=== PATIENT | male | born 1955 | race Caucasian/White ===

== ENCOUNTER 2017-11-23 10:35 | Day surgery (SDC) | payer SELFPAY ==
[~2017-11-23 10:35] MED LIST: BENI20TA26 PO; BUPR150T3 PO; LORTA10 PO; NEXI40CA PO; PRIS50TA PO; ROSU5 PO; SYNT125T OR; ZOVI800T13 PO
[2017-11-23] MEDS ORDERED: ACYC800T PO (10:47)
[2017-11-23] MEDS ORDERED: LEVO.2 PO (10:47)
[2017-11-23 10:48] VITALS: BP 160/99; PULSE 103; RESP 20; O2SAT 97
[2017-11-23 11:30] VITALS: BP 152/84; PULSE 92; RESP 20; TEMP 98.5; O2SAT 98
--- NOTE | 2017-11-23 11:46 | RADRPT ---
EXAM DATE/TIME: 11/23/2017 12:28 [place] COMPARISON: No previous studies available for comparison. INDICATIONS : Patient with osteomylitis right knee. will be receiving IV therapy. MEDICAL HISTORY : 1.HTN 2. GERD 3. Depression 4. diverticulitis SURGICAL HISTORY : 1. surgery right knee ENCOUNTER: Initial ACUITY: 2 months PAIN SCORE: 1/10 LOCATION: Right knee FLUORO TIME: 0.8 minutes IMAGE SERIES: 1 ACCESS: Right basilic vein DEVICE(S): 1.) 4 [place] single lumen 42 cm Xcela Power PICC Patient was premedicated per protocol for underlying contrast media allergy. PROCEDURE : 1. Ultrasound guidance for venous catheterization. 2. Fluoroscopic guidance. 3. Ultrasound & fluoroscopic guided central venous Power PICC line placement. The risks, benefits and alternatives to the procedure were explained and verbal and written consent w as obtained. The site was prepped in sterile fashion. Full sterile technique was used, including ca p, mask, sterile gloves and gown and a large sterile sheet. Hand hygiene and 2% chlorhexidine prep w as utilized per protocol for cutaneous antisepsis with appropriate dry time for site. Sterile gel a nd sterile probe cover were utilized for ultrasound guidance. The skin and subcutaneous tissues wer e infiltrated with local anesthetic solution. Under direct ultrasound guidance, a suitable vein was accessed and a measuring guidewire was introduc ed and positioned in the central venous system. The ultrasound images depicting access guidance were saved and stored to PACS for permanent record. A Power Injectable PICC line was cut to prescribed length and introduced, positioned with tip at the cavoatrial junction level. The line was flushed and secured per protocol. CONCLUSION: 1. Uncomplicated central venous Power PICC line placement. 2. The PICC line can be used immediately. Dean Parker MD on November 23, 2017 at 11:43 Board Certified Radiologist. This report was verified electronically.
[2017-11-23] MEDS ORDERED: SODIUM CHLORIDE 0.9% FLUSH 10 ML FLUSH IVF PRN ×2 (12:45)
[2017-11-24] MEDS ORDERED: SODIUM CHLORIDE 0.9% FLUSH 10 ML FLUSH IVF SCH (09:00)
== END 2017-11-23 11:50 | disposition home or self-care (01) ==
LOC: HROP 10:35 → HRIP 10:36 → HROP 11:50
PROVIDERS: ATTEND Internal Medicine
DX: M86.9 Osteomyelitis, unspecified (principal); I10 Essential (primary) hypertension; K21.9 Gastro-esophageal reflux disease without esophagitis; K57.92 Diverticulitis of intestine, part unspecified, without perforation or abscess without bleeding
CPT/HCPCS: 36569; 76937; 77001; C1751; J1642

== ENCOUNTER → 2018-04-20 | Day surgery (SDC) | payer SELFPAY ==
[~2018-04-20] VITALS: Ht 170.2 cm; Wt 82.0 kg
[~2018-04-20] MED LIST changes: +*morphine SULFATE 8 MG/ML PERIprocedure ONLY ONE; +ACETAMINOPHEN 1000 MG/100 ML 100 ML IV ONE; +APREPITANT 40 MG CAP ONE; +APREPITANT 40 MG CAP PO ONE; -BENI20TA26 PO; +BUPR150CR PO; -BUPR150T3 PO; +CARV12.5 PO; +COMMODE 3-IN-11 MIS; +DAPT500P IV; +DESV5TAB PO; +DEXAMETHASONE SOD PHOS 4 MG/ML VIAL IV ONE; +DO NOT ADM ANY ANTICOAGULANT DRUGS PRN; +DRON2.5C PO; +FAMO20TA2 PO; +FAMOTIDINE 20 MG/2 ML VIAL ONE; +FURO20TA PO; +GENTAMICIN SULFATE 80 MG/2 ML VIAL ONE; +HYDROmorphone HCL PF 2 MG/ML VIAL ONE; +INVA1INJ IV; +LIDO1PAD52 TOPICAL; +LORA-474 PO; +LORA1TAB12 PO; -LORTA10 PO; +MICO2CRE34 TOPICAL; +MIDAZOLAM HCL 2 MG/2 ML VIAL ONE; +MULT1TAB46 PO; -NEXI40CA PO; +OXYC1TAB35 PO; +PERC10TA27 PO; +PERC7.5T13 PO; +PHENYLEPH/NS 1000 MCG/10 ML SYR IV ONE; -PRIS50TA PO; +PROPOFOL 200 MG/20 ML AMP IV ONE; -ROSU5 PO; +SACU1TAB PO; +SODIUM CHLORIDE 0.9% 20 ML VIAL IV ONE; -SYNT125T OR; +SYNT88TA PO; +VASOPRESSIN 20 UNITS/ML VIAL ONE; +VITA100T54 PO; +VORT1TAB3 PO; +XARE15TA PO; +XARE20TA PO; +ZOFR8TAB PO; -ZOVI800T13 PO; +ceFAZolin INJ 1,000 MG VIAL ONE; +ePHEDrine/NS 25 MG/5 ML SYRINGE IV ONE; +fentaNYL CITRATE 250 MCG/5 ML AMP ONE; +oxyCODONE/ACETAMINOPHEN 10 MG/325 MG TAB ONE; +oxyCODONE/ACETAMINOPHEN 10 MG/325 MG TAB PO PRN
--- NOTE | 2018-04-20 12:29 | MP ---
cc: Gt Kearns MD DATE OF OPERATION: 04/20/2018 DATE OF OPERATION: 04/20/2018. PREOPERATIVE DIAGNOSIS: Right knee septic arthritis, right knee infection. POSTOPERATIVE DIAGNOSIS: Right knee septic arthritis, right knee infection. PROCEDURE PERFORMED: Right knee arthrotomy, drainage, irrigation, and debridement. SURGEON: Loyda Kearns MD POST DOC FELLOWSHIP: Vonda Estrada PA-C. ANESTHESIA: General. COMPLICATIONS: None. SPECIMEN: Right knee synovial fluid sent for Gram stain, aerobic and anaerobic cultures and sensitivities. DRAINS: One. DESCRIPTION OF PROCEDURE: The patient was brought into the operating room and had satisfactory general anesthesia by Dr. Francois of the Department of Anesthesia. Right lower extremity was prepped and draped in the usual sterile manner. The extremity was exsanguinated by elevation and tourniquet inflated to 250 mmHg. The previous incision was used, an anterior paramedian incision. Arthrotomy was made. The patient was found to have approximately 60 mL of purulent look to the synovial fluid. Cultures were taken for Gram stain, culture and sensitivity, aerobic and anaerobic. The knee was drained. It was irrigated with 12,000 mL of sterile Ringer's lactated solution. The previous area along the medial femoral condyle showed what appear to be hyaline type of cartilage. There was no longer any exposed bone. The knee was closed over 1/8-inch Hemovac drain. The capsule was repaired using #1 PDS suture, the subcutaneous layer using 2-0 PDS suture. The skin was approximated with 2-0 nylon suture. Sterile dressings were applied. Tourniquet was deflated. The patient tolerated the procedure well and arrived in the recovery room in stable and satisfactory condition. Gt Kearns MD AWG/SB , 12:10 PM , 12:28 PM
[2018-04-20 13:58] VITALS: BP 137/87; PULSE 78; RESP 18; TEMP 97.4; O2SAT 94
== END | disposition home or self-care (01) ==
LOC: HSDC 08:32
PROVIDERS: ATTEND Orthopaedic Surgery Orthopaedic Surgery of the Spine
DX: M00.061 Staphylococcal arthritis, right knee (principal); B95.62 Methicillin resistant Staphylococcus aureus infection as the cause of diseases classified elsewhere; Z16.11 Resistance to penicillins; I50.9 Heart failure, unspecified; F41.8 Other specified anxiety disorders; F40.240 Claustrophobia; Z87.891 Personal history of nicotine dependence
CPT/HCPCS: 01400; 27310; 86403; 87070; 87147; 87186; 87205; J0131; J0690; J1100; J1170; J2250; J2270; J2370; J3010; J8501; 36569; 76937; J1580

== ENCOUNTER 2018-07-14 09:00 | Inpatient (IN) ==
--- NOTE | 2018-07-14 09:48 | ED ---
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 And he was treated with such as an outpatient. Back in March 2018 the patient again had another positive synovial test on the right knee septic arthritis with septicemia. Now the patient returns complaining of the same pain to his right knee as well as right shoulder pain and right buttock pain that started last night, described as throbbing, 8 out of 10, patient denies trauma. Only thing that the patient describes as a twisting effect to his right knee which cause increased swelling and pain however no actual fall nor hitting of his body or falling on the ground. This occurred while he was getting out of the shower. Per patient he has not been on any antibiotics after being on daptomycin for nearly 7 months. He has been off antibiotics for approximately 3 months now. Location: right and lower extremity (Right knee, right buttock/hip area, and right shoulder) Radiation: non-radiation Severity: moderate Severity scale (1-10): 8 Quality: other (Throbbing) Pain Consistency: constant Relieving factors: none Exacerbating factors: none Associated symptoms: denies other symptoms Treatments prior to arrival: none Related Data Home Medications Medication Instructions Recorded Confirmed acyclovir 800 mg PO DAILY 07/14/18 07/14/18 bupropion HCl 300 mg PO QAM 07/14/18 07/14/18 carvedilol 12.5 mg PO BID 07/14/18 07/14/18 dexlansoprazole [Dexilant] 60 mg PO DAILY 07/14/18 07/14/18 levothyroxine [Synthroid] 88 mcg PO DAILY 07/14/18 07/14/18 oxycodone-acetaminophen 10 - 325 mg PO Q6HR PRN 07/14/18 07/14/18 prednisone 5 mg PO DAILY 07/14/18 07/14/18 rivaroxaban [Xarelto] 20 mg PO DAILY 07/14/18 07/14/18 vortioxetine [Trintellix] 10 mg PO DAILY 07/14/18 07/14/18 Allergies Allergy/AdvReac Type Severity Reaction Status Date / Time penicillin G Allergy Severe Unverified 04/20/18 09:09 Sulfa (Sulfonamide Allergy Severe Unverified 04/20/18 09:09 Antibiotics) vancomycin Allergy Severe Rash Verified 04/20/18 09:09 IVP DYE Allergy Unknown Nausea/Vomi Uncoded 11/23/17 10:51 ting Review of Systems ROS: all other systems reviewed are negative PMFSH History History Provided By: Patient Medical History Medical History Heart failure (Acute) Knee injury (Acute) MRSA (methicillin resistant Staphylococcus aureus) (Acute) Surgical History Surgical History History of knee surgery (Acute) Family History Family History Other Patient denies significant medical history Social History Social History Substance History: No History of Abuse Second Hand Smoke Exposure: No Smoking Status: Former smoker Tobacco Type: Cigarettes How Often Do You Have a Drink Containing Alcohol: 2 to 3 times a week [facility] within the Last 8 Weeks: No Recent Out of Country Travel within the Last 8 Weeks: No Immunization History Tetanus Immunization: <5 Years Hx Influenza Vaccine This Season: No Exam Narrative Exam Narrative: GENERAL: Well-nourished, well-developed patient in no apparent distress. SKIN: Warm and dry. HEAD: Atraumatic. Normocephalic. EYES: Pupils equal and round. No scleral icterus. No injection or drainage. ENT: No nasal bleeding or discharge. Mucous membranes pink and moist. NECK: Trachea midline. No JVD. CARDIOVASCULAR: Regular rate and rhythm. no rubs or gallops RESPIRATORY: No accessory muscle use. Clear to auscultation. Breath sounds equal bilaterally. GASTROINTESTINAL: Abdomen soft, non-tender, nondistended. No rebound or guarding MUSCULOSKELETAL: Extremities without clubbing, cyanosis, or edema. No obvious deformities. NEUROLOGICAL: Awake and alert. No obvious cranial nerve deficits. Motor grossly within normal limits. Five out of 5 muscle strength in the arms and legs. Normal speech. PSYCHIATRIC: Appropriate mood and affect; insight and judgment normal. Course Initial Documented Vital Signs Temperature 98.9 F 07/14/18 09:09 Pulse Rate 97 H 07/14/18 09:09 Respiratory Rate 15 07/14/18 09:09 Blood Pressure 146/105 H 07/14/18 09:09 Pulse Oximetry 97 07/14/18 09:09 Last Documented Vital Signs Temperature 98.9 F 07/14/18 09:09 Pulse Rate 97 H 07/14/18 09:09 Respiratory Rate 15 07/14/18 09:09 Blood Pressure 146/105 H 07/14/18 09:09 Pulse Oximetry 98 07/14/18 10:10 Medical Decision Making MDM Narrative Medical decision making narrative: Immediately upon arrival the patient was begun on the sepsis protocol, contacted pharmacy to obtain a single dose first dose of Cubicin 500 mg IV 1, his previous creatinine/kidney functions were noted from January of this year, and again the patient himself states that he has normal kidney functions. Medical Screen Exam Complete: Yes Emergency Medical Condition: Yes Differential Diagnosis Differential Diagnosis: Migrating joint site infection versus septicemia versus STEMI versus non-STEMI Lab Data Result diagrams: 07/14/18 09:50 07/14/18 09:50 Lab Results 07/14/18 07/14/18 07/14/18 Range/Units 09:50 09:50 09:50 WBC 7.7 (4.0-11.0) th/mm3 RBC 4.13 L (4.50-5.90) mil/mm3 Hgb 14.6 (13.0-17.0) gm/dL Hct 42.5 (39.0-51.0) % MCV 102.8 H (80.0-100.0) fL MCH 35.4 H (27.0-34.0) pg MCHC 34.4 (32.0-36.0) % RDW 15.6 (11.6-17.2) % Plt Count 213 (150-450) th/mm3 MPV 8.2 (7.0-11.0) fL Neut % (Auto) 66.8 (16.0-70.0) % Lymph % (Auto) 18.7 (9.0-44.0) % Young % (Auto) 13.8 H (0.0-8.0) % Eos % (Auto) 0.3 (0.0-4.0) % Baso % (Auto) 0.4 (0.0-2.0) % Neut # (Auto) 5.1 (1.8-7.7) th/mm3 Lymph # (Auto) 1.4 (1.0-4.8) th/mm3 Young # (Auto) 1.1 H (0.0-0.9) th/mm3 Eos # (Auto) 0.0 (0.0-0.4) th/mm3 Baso # (Auto) 0.0 (0.0-0.2) th/mm3 WBC Differential . Differential Comment Auto diff final ESR (0-20) mm/hr Sodium 135 L (136-145) meq/L Potassium 4.0 (3.5-5.1) meq/L Chloride 101 (98-107) meq/L Carbon Dioxide 27.4 (21.0-32.0) meq/L Anion Gap 7 (5-15) meq/L BUN 12 (7-18) mg/dL Creatinine 0.81 (0.60-1.30) mg/dL Estimated GFR Greater than 89 (>89) mL/min Random Glucose 81 (74-106) mg/dL Lactic Acid 0.7 (0.4-2.0) mmol/L Calcium 8.8 (8.5-10.1) mg/dL Total Bilirubin 0.4 (0.2-1.0) mg/dL AST 17 (15-37) U/L ALT 38 (12-78) U/L Alkaline Phosphatase 45 (45-117) U/L Total Creatine Kinase (39-308) U/L Troponin I (0.02-0.05) ng/mL C-Reactive Protein (0.00-0.30) mg/dL B-Natriuretic Peptide (0-100) pg/mL Total Protein 7.1 (6.4-8.2) g/dL Albumin 2.5 L (3.4-5.0) g/dL 07/14/18 07/14/18 07/14/18 Range/Units 09:50 09:50 09:50 WBC (4.0-11.0) th/mm3 RBC (4.50-5.90) mil/mm3 Hgb (13.0-17.0) gm/dL Hct (39.0-51.0) % MCV (80.0-100.0) fL MCH (27.0-34.0) pg MCHC (32.0-36.0) % RDW (11.6-17.2) % Plt Count (150-450) th/mm3 MPV (7.0-11.0) fL Neut % (Auto) (16.0-70.0) % Lymph % (Auto) (9.0-44.0) % Young % (Auto) (0.0-8.0) % Eos % (Auto) (0.0-4.0) % Baso % (Auto) (0.0-2.0) % Neut # (Auto) (1.8-7.7) th/mm3 Lymph # (Auto) (1.0-4.8) th/mm3 Young # (Auto) (0.0-0.9) th/mm3 Eos # (Auto) (0.0-0.4) th/mm3 Baso # (Auto) (0.0-0.2) th/mm3 WBC Differential Differential Comment ESR (0-20) mm/hr Sodium (136-145) meq/L Potassium (3.5-5.1) meq/L Chloride (98-107) meq/L Carbon Dioxide (21.0-32.0) meq/L Anion Gap (5-15) meq/L BUN (7-18) mg/dL Creatinine (0.60-1.30) mg/dL Estimated GFR (>89) mL/min Random Glucose (74-106) mg/dL Lactic Acid (0.4-2.0) mmol/L Calcium (8.5-10.1) mg/dL Total Bilirubin (0.2-1.0) mg/dL AST (15-37) U/L ALT (12-78) U/L Alkaline Phosphatase (45-117) U/L Total Creatine Kinase 49 (39-308) U/L Troponin I Less than 0.02 L (0.02-0.05) ng/mL C-Reactive Protein 22.00 H (0.00-0.30) mg/dL B-Natriuretic Peptide 45 (0-100) pg/mL Total Protein (6.4-8.2) g/dL Albumin (3.4-5.0) g/dL 08/17/18 Range/Units 14:07 WBC (4.0-11.0) th/mm3 RBC (4.50-5.90) mil/mm3 Hgb (13.0-17.0) gm/dL Hct (39.0-51.0) % MCV (80.0-100.0) fL MCH (27.0-34.0) pg MCHC (32.0-36.0) % RDW (11.6-17.2) % Plt Count (150-450) th/mm3 MPV (7.0-11.0) fL Neut % (Auto) (16.0-70.0) % Lymph % (Auto) (9.0-44.0) % Young % (Auto) (0.0-8.0) % Eos % (Auto) (0.0-4.0) % Baso % (Auto) (0.0-2.0) % Neut # (Auto) (1.8-7.7) th/mm3 Lymph # (Auto) (1.0-4.8) th/mm3 Young # (Auto) (0.0-0.9) th/mm3 Eos # (Auto) (0.0-0.4) th/mm3 Baso # (Auto) (0.0-0.2) th/mm3 WBC Differential Differential Comment ESR 62 H (0-20) mm/hr Sodium (136-145) meq/L Potassium (3.5-5.1) meq/L Chloride (98-107) meq/L Carbon Dioxide (21.0-32.0) meq/L Anion Gap (5-15) meq/L BUN (7-18) mg/dL Creatinine (0.60-1.30) mg/dL Estimated GFR (>89) mL/min Random Glucose (74-106) mg/dL Lactic Acid (0.4-2.0) mmol/L Calcium (8.5-10.1) mg/dL Total Bilirubin (0.2-1.0) mg/dL AST (15-37) U/L ALT (12-78) U/L Alkaline Phosphatase (45-117) U/L Total Creatine Kinase (39-308) U/L Troponin I (0.02-0.05) ng/mL C-Reactive Protein (0.00-0.30) mg/dL B-Natriuretic Peptide (0-100) pg/mL Total Protein (6.4-8.2) g/dL Albumin (3.4-5.0) g/dL Imaging Data Radiologist's impression: Knee X-Ray 07/14/18 00:00 CONCLUSION: Fairly large osteochondral injury in the medial femoral condyle with large joint effusion. Mild to moderate osteoarthritis of patellofemoral joint. Reactive sclerosis and osteophyte formation in the medial tibial plateau. Chest X-Ray 07/14/18 09:42 CONCLUSION: Cardiomegaly with mild basilar atelectasis. Venous Doppler Study 07/14/18 09:54 CONCLUSION: 1. No DVT identified. 2. Complex subcutaneous, serpiginous fluid collection in the medial right calf differential considerations are given above. Discharge Plan Discharge Disposition Patient Disposition: 01 Discharge Home Discharge Condition Condition: Stable Discharge Order Discharge Orders: Discharge Order (Routine); Ordered 07/14/18 Ordered By: Zaid Marinelli Discharge Details Anticipated Discharge Date: 07/14/18 Diagnosis: Hemarthrosis Physicians Team ED Provider: Zaid Marinelli Primary Care Provider: Primary Care Yelena Giron Attending Provider: Josias Yip Other Providers: Anmol Robledo Status ED Status: Admitted Observation Patient
[2018-07-14] MEDS ORDERED: Morphine Inj 4 MG/ML Vial IV.PUSH ONE (10:00)
[2018-07-14] MEDS ORDERED: Ketorolac Inj 30 MG/ML (IVP) Vial IV.PUSH ONE (10:00)
--- NOTE | 2018-07-14 10:12 | XR ---
EXAM DATE: 07/14/2018 10:00 AM EDT AGE/SEX: 62 years / Male INDICATIONS: Shortness of breath. CLINICAL DATA: This is the patient's initial encounter. Patient reports that signs and symptoms have been present for 1 day and indicates a pain score of 0/10. MEDICAL/SURGICAL HISTORY: Hypertension. Gastroesophageal reflux disease. None. COMPARISON: No prior exams available for comparison. FINDINGS: Cardiomegaly. Mild basilar airspace disease. Elevated right hemidiaphragm. No significant effusion. N o pneumothorax. CONCLUSION: Cardiomegaly with mild basilar atelectasis. Electronically signed by: Nicolas Jay MD 07/14/2018 10:10 AM EDT
[2018-07-14 10:14] LABS: Baso % (Auto) 0.4 % (0.0-2.0); Eos % (Auto) 0.3 % (0.0-4.0); Hematocrit 42.5 % (39.0-51.0); Hemoglobin 14.6 gm/dL (13.0-17.0); Lymph # (Auto) 1.4 th/mm3 (1.0-4.8); Lymph % (Auto) 18.7 % (9.0-44.0); Mean Corpuscular HGB Conc 34.4 % (32.0-36.0); Mean Corpuscular Hemoglobin 35.4 pg (27.0-34.0); Mean Corpuscular Volume 102.8 fL (80.0-100.0); Mean Platelet Volume 8.2 fL (7.0-11.0); Mono # (Auto) 1.1 th/mm3 (0.0-0.9); Mono % (Auto) 13.8 % (0.0-8.0); Neut # (Auto) 5.1 th/mm3 (1.8-7.7); Neut % (Auto) 66.8 % (16.0-70.0); Platelet Count 213 th/mm3 (150-450); Red Blood Count 4.13 mil/mm3 (4.50-5.90); Red Cell Distribution Width 15.6 % (11.6-17.2); White Blood Count 7.7 th/mm3 (4.0-11.0)
[2018-07-14 10:35] LABS: Alanine Aminotransferase 38 U/L (12-78); Albumin 2.5 g/dL (3.4-5.0); Anion Gap 7 meq/L (5-15); Aspartate Aminotransferase 17 U/L (15-37); Blood Urea Nitrogen 12 mg/dL (7-18); Calcium 8.8 mg/dL (8.5-10.1); Carbon Dioxide 27.4 meq/L (21.0-32.0); Chloride 101 meq/L (98-107); Glomerular Filtration Rate Greater Than 89 mL/min (>89); Glucose,Random 81 mg/dL (74-106); Sodium 135 meq/L (136-145)
[2018-07-14 10:38] LABS: Alkaline Phosphatase 45 U/L (45-117); Total Protein 7.1 g/dL (6.4-8.2)
[2018-07-14 10:51] LABS: Creatine Kinase 49 U/L (39-308)
[2018-07-14] MEDS ORDERED: DAPTOmycin Inj 500 MG in Sodium Chlor 0.9% Inj 100 ML IV.SIG ONE (11:00)
--- NOTE | 2018-07-14 11:10 | US ---
EXAM DATE: 07/14/2018 11:00 AM EDT AGE/SEX: 62 years / Male INDICATIONS: Right leg swelling. CLINICAL DATA: This is the patient's initial encounter. Patient reports that signs and symptoms have been present for 2 weeks and indicates a pain score of 3/10. MEDICAL/SURGICAL HISTORY: . Heart failure. Right knee injury. MRSA. . Right knee surgery. COMPARISON: No prior exams available for comparison. TECHNIQUE: Venous ultrasound of both lower extremities was performed from the inguinal ligament to t he proximal calf. Real-time, color Doppler and spectral tracing, compression and augmentation techni ques were used. FINDINGS: Normal compression of the deep venous system from the inguinal region to the proximal calf . No echogenic clot is seen. Normal response of the venous system to augmentation and respiration. The examination does demonstrate a complex subcutaneous fluid collection in the medial portion of the right calf measuring 11. 4 cm in length by 2.2 cm in thickness. Differential considerations would in clude subcutaneous hematoma, abscess, seroma or possibly a large thrombosed varicosity. The overall a ppearance is nonspecific by ultrasound. CONCLUSION: 1. No DVT identified. 2. Complex subcutaneous, serpiginous fluid collection in the medial right calf differential consider ations are given above. Electronically signed by: Pankaj Velasquez MD 07/14/2018 11:09 AM EDT
[2018-07-14] MEDS ORDERED: Sod Chloride 0.9% Inj 1,000 ML IV.CONT SCH (11:15)
--- NOTE | 2018-07-14 12:47 | P.HPIM ---
History of Present Illness Primary Care Physician: No Primary Care Physician Chief Complaint: right knee pain History of Present Illness: patient is a 62 y/o male with history of MRSA septic arthritis and cardiomyopathy who presented to ER with right knee pain. he says that he had right knee injury in 2016. he had knee surgery late 2016 after which he developed septic arthritis due to MRSA. he was admitted to the hospital and after a long hospitalization in December due to respiratory failure, pneumonia , [facility] and finally he went home.he says that while in the hospital he was started on IV Vanco but then he had a reaction and then he was switched to IV Daptomycin for about three months.he had I/D of the right knee in March/2018. he says that he's been fine since then but he last Tuesday when he was going to bathroom, he 'twisted his leg' after which his knee started to get swollen. he says that initially he thought it was because of the ' trauma' but later on he started to have chills and felling feverish along with some pain to the right shoulder and right buttock which made him concerned and he decided to come to ER. at the time of my evaluation he was in no acute distress but uncomfortable with the pain to the right knee. Review of Systems All other systems reviewed negative except as stated in HPI PMFSH - History History Provided By: Patient - Medical History Medical History: Medical History (Last Reviewed 07/14/18 @ 09:47 by Zaid Marinelli) Heart failure Knee injury MRSA (methicillin resistant Staphylococcus aureus) - Surgical History Surgical History: Surgical History (Last Reviewed 07/14/18 @ 09:47 by Zaid Marinelli) History of knee surgery - Family History Family History: Family History (Last Updated 07/14/18 @ 12:41 by Josias Yip MD) Other Patient denies significant medical history - Tobacco History Second Hand Smoke Exposure: No Tobacco Use In Past 30 Days: No Smoking Status: Former smoker Tobacco Type: Cigarettes - Alcohol History How Often Do You Have a Drink Containing Alcohol: 2 to 3 times a week - Substance Use History Substance History: No History of Abuse - Travel History Recent Travel in the [place] Within the Last 8 Weeks: No Recent Travel Out of the Country Within the Last 8 Weeks: No - Immunization History Tetanus Immunization: <5 Years Hx Influenza Vaccine This Season: No Medications and Allergies Active Medications: Active Medications Sodium Chloride (Ns Inj) 1,000 mls @ 100 mls/hr IV.CONT .Q10H CARLOS Stop: 07/14/18 21:14 Last Admin: 07/14/18 11:18 Dose: 100 mls/hr Allergies Allergy/AdvReac Type Severity Reaction Status Date / Time penicillin G Allergy Severe Unverified 04/20/18 09:09 Sulfa (Sulfonamide Allergy Severe Unverified 04/20/18 09:09 Antibiotics) vancomycin Allergy Severe Rash Verified 04/20/18 09:09 IVP DYE Allergy Unknown Nausea/Vomi Uncoded 11/23/17 10:51 ting Home Medications Medication Instructions Recorded Confirmed Type acyclovir 800 mg PO DAILY 07/14/18 07/14/18 History bupropion HCl 300 mg PO QAM 07/14/18 07/14/18 History carvedilol 12.5 mg PO BID 07/14/18 07/14/18 History dexlansoprazole [Dexilant] 60 mg PO DAILY 07/14/18 07/14/18 History levothyroxine [Synthroid] 88 mcg PO DAILY 07/14/18 07/14/18 History oxycodone-acetaminophen 10 - 325 mg PO Q6HR PRN 07/14/18 07/14/18 History prednisone 5 mg PO DAILY 07/14/18 07/14/18 History rivaroxaban [Xarelto] 20 mg PO DAILY 07/14/18 07/14/18 History vortioxetine [Trintellix] 10 mg PO DAILY 07/14/18 07/14/18 History Exam Vital signs: Vital Signs 07/14/18 09:09 07/14/18 10:10 Temperature 98.9 F Pulse Rate 97 H Respiratory Rate 15 Blood Pressure 146/105 H Pulse Oximetry 97 98 Intake & Output 07/13/18 07/14/18 07/14/18 18:59 06:59 18:59 Weight 90.718 kg - Constitutional no acute distress - Routine HEENT Exam Eye: Present: PERRL - Routine Neck Exam Present: supple, full ROM - Routine Respiratory Exam Present: CTA bilaterally - Routine Cardiovascular Exam Present: RRR - Routine Abdominal Exam Present: soft - Routine Extremities Exam Present: edema (right knee is swollen, warm and tender with decreased ROM.) - Routine Neurological Exam Present: alert, oriented X3 Results - Labs CBC & Chem 7: 07/14/18 09:50 07/14/18 09:50 Labs: Short CBC 07/14/18 Range/Units 09:50 WBC 7.7 (4.0-11.0) th/mm3 Hgb 14.6 (13.0-17.0) gm/dL Hct 42.5 (39.0-51.0) % Plt Count 213 (150-450) th/mm3 BMP 07/14/18 09:50 Sodium 135 L Potassium 4.0 Chloride 101 Carbon Dioxide 27.4 BUN 12 Creatinine 0.81 Calcium 8.8 Cardiac Enzymes 07/14/18 Range/Units 09:50 Total Creatine Kinase 49 (39-308) U/L Troponin I Less than 0.02 L (0.02-0.05) ng/mL Liver Function 07/14/18 Range/Units 09:50 Total Bilirubin 0.4 (0.2-1.0) mg/dL AST 17 (15-37) U/L ALT 38 (12-78) U/L Alkaline Phosphatase 45 (45-117) U/L Albumin 2.5 L (3.4-5.0) g/dL - Imaging Impressions Chest X-Ray 07/14/18 09:42 CONCLUSION: Cardiomegaly with mild basilar atelectasis. Venous Doppler Study 07/14/18 09:54 CONCLUSION: 1. No DVT identified. 2. Complex subcutaneous, serpiginous fluid collection in the medial right calf differential considerations are given above. Caprini VTE Risk Assessment Caprini VTE Risk Assessment: Moderate/High Risk (score >= 2) Caprini Risk Assessment Model: Point Value = 1 Point Value = 2 Point Value = 3 Point Value = 5 Age 41-60 Minor surgery BMI > 25 kg/m2 Swollen legs Varicose veins or History of unexplained or recurrent spontaneous Oral contraceptives or hormone replacement Sepsis (< 1 month) Serious lung disease, including pneumonia (< 1 month) Abnormal pulmonary function Acute myocardial infarction Congestive heart failure (< 1 month) History of inflammatory bowel disease Medical patient at bed rest Age 61-74 Arthroscopic surgery Major open surgery (> 45 min) Laparoscopic surgery (> 45 min) Malignancy Confined to bed (> 72 hours) Immobilizing plaster cast Central venous access Age >= 75 History of VTE Family history of VTE Factor V Leiden Prothrombin [id number] Lupus anticoagulant Anticardiolipin antibodies Elevated serum homocysteine Heparin-induced thrombocytopenia Other congenital or acquired thrombophilia Stroke (< 1 month) Elective arthroplasty Hip, pelvis, or leg fracture Acute spinal cord injury (< 1 month) Prophylaxis Regimen: Total Risk Factor Score Risk Level Prophylaxis Regimen 0-1 Low Early ambulation 2 Moderate Order ONE of the following: *Sequential Compression Device (SCD) *Heparin 5000 units SQ BID 3-4 Higher Order ONE of the following medications: *Heparin 5000 units SQ TID *Enoxaparin/Lovenox 40 mg SQ daily (WT < 150 kg, CrCl > 30 mL/min) *Enoxaparin/Lovenox 30 mg SQ daily (WT < 150 kg, CrCl > 10-29 mL/min) *Enoxaparin/Lovenox 30 mg SQ BID (WT < 150 kg, CrCl > 30 mL/min) AND/OR *Sequential Compression Device (SCD) 5 or more Highest Order ONE of the following medications: *Heparin 5000 units SQ TID (Preferred with Epidurals) *Enoxaparin/Lovenox 40 mg SQ daily (WT < 150 kg, CrCl > 30 mL/min) *Enoxaparin/Lovenox 30 mg SQ daily (WT < 150 kg, CrCl > 10-29 mL/min) *Enoxaparin/Lovenox 30 mg SQ BID (WT < 150 kg, CrCl > 30 mL/min) AND *Sequential Compression Device (SCD) Assessment and Plan - Plan A/P - right knee swelling/ pain- suspect septic arthritis ( patient with history of septic arthritis due to MRSA) will check XR of the right knee, ESR and CRP- will follow the blood cultures - consult ortho - will empirically start on IV antibiotics- will consider ID evaluation- continue with pain control. - cardiomyopathy; will verify the home meds and resume when med list is available. -DVT prophylaxis ; will resume Xarelto after ortho evaluation. Discussed Condition With: ER physician and the patient.
[2018-07-14] MEDS ORDERED: Acetaminophen 325 MG Tablet PO PRN (12:56)
--- NOTE | 2018-07-14 13:51 | XR ---
EXAM DATE: 07/14/2018 1:31 PM EDT AGE/SEX: 62 years / Male INDICATIONS: Right knee pain. CLINICAL DATA: This is the patient's initial encounter. Patient reports that signs and symptoms have been present for > 1 year and indicates a pain score of 8/10. MEDICAL/SURGICAL HISTORY: . hx of MRSA . 3 knee surgeries COMPARISON: No prior exams available for comparison. FINDINGS: There is moderate osteoarthritis predominantly at the medial knee joint with sclerosis and osteochond ral injury involving the medial femoral condyle. Large joint effusion. CONCLUSION: Fairly large osteochondral injury in the medial femoral condyle with large joint effusion. Mild to mo derate osteoarthritis of patellofemoral joint. Reactive sclerosis and osteophyte formation in the med ial tibial plateau. Electronically signed by: Nicolas Jay MD 07/14/2018 1:50 PM EDT
[2018-07-14] MEDS ORDERED: DAPTOmycin Inj 500 MG in Sodium Chlor 0.9% Inj 100 ML IV.SIG SCH (14:00)
--- NOTE | 2018-07-14 17:05 | MB ---
cc: Gt Kearns MD,Regis MCKEON DATE: 07/14/2018 REQUESTING PHYSICIAN: Dr. Yip. CHIEF COMPLAINT: Right knee pain. HISTORY OF PRESENT ILLNESS: This is a 62-year-old male presenting with the following history: Six days ago, he was at home getting out of his bathtub, he slipped, and twisted his right knee. He developed immediate pain in the knee with swelling. He had done fairly well with the knee. He is an internal medicine physician, and was able go back to work. He states that at 3:00 this morning, he woke up with increased swelling and pain involving the right knee, and also pain involving the right shoulder, and also the right sacroiliac joint region. Denies any numbness or tingling. Denies any history of fever or chills. He states he has not "felt sick." The patient does have a history of methicillin-resistant Staphylococcus aureus sepsis. This was in 12/2017. 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 He was treated medically with intravenous antibiotics. The patient also developed recurrent swelling to the knee with a knee effusion in 03/2108 that required an arthrotomy, and irrigation and debridement. The patient has been off of all antibiotics for at least 2 months, and has had a normal Westergren sedimentation rate and C-reactive protein. The patient does have right knee, medial compartment osteonecrosis with severe osteoarthritis. There has been no evidence of any osteomyelitis involving the right knee area. The patient is on Xarelto. He does have cardiomyopathy with intermittent history of atrial fibrillation. He states his ejection fraction is 20%. He is under management of Dr. Arzate of cardiology. Laboratory studies showed the patient to have elevated C-reactive protein equal to 22 and elevated Westergren sedimentation rate equal to 62. Albumin is equal to 2.5. The patient has normal renal function, normal electrolytes. CBC shows a normal white count of 7700. The patient has hyperchromic hyperesthetic indices, monocytes are high at 13.8 with normal at 8.0. The patient also has normal platelet count of 213,000. Under sterile conditions, the right knee was aspirated of 50 mL of bloody fluid. This compatible with a hemarthrosis. PAST MEDICAL HISTORY: See HPI. See records. SOCIAL HISTORY: The patient lives at home by himself. 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 FAMILY HISTORY: See records. REVIEW OF SYSTEMS: Noncontributory. PHYSICAL EXAMINATION: GENERAL: A 62-year-old male, who looks his stated age. The patient is in no acute distress. Alert and oriented to person, place and time. MUSCULOSKELETAL: Right knee has a moderate knee effusion. The patient has good range of motion about the right hip with no provocative symptoms. The patient has mild tenderness on the right sacroiliac joint. No swelling or tenderness noted. Right shoulder has mild restricted range of motion. No obvious shoulder effusion noted. No tenderness to the cervical, thoracic, or lumbar spine region. Good strength in the upper and lower extremities. IMPRESSION: 1. Right knee hemarthrosis. The patient is on Xarelto anticoagulation because of a history of atrial fibrillation. 2. History of right knee methicillin-resistant Staphylococcus aureus septic arthritis. 3. History of methicillin-resistant Staphylococcus aureus sepsis, 12/2017. RECOMMENDATIONS: I recommend the patient treated with intravenous antibiotics. Aerobic, anaerobic cultures and sensitivities were taken from the knee. Also, aerobic, anaerobic culture and sensitivity were taken from the blood earlier. Informed the patient will make further medical decision after the results of the blood cultures and cultures taken from the right knee aspiration. We will continue to follow the patient as an outpatient. In my opinion, the patient is medically stable to be discharged home. MD JERRY Yoder/rh , 04:26 PM , 04:41 PM
[2018-07-15] MEDS ORDERED: Levothyroxine 88 MCG Tablet PO SCH (06:00)
[2018-07-15] MEDS ORDERED: DAPTOmycin Inj 500 MG in Sodium Chlor 0.9% Inj 100 ML IV.SIG SCH ×2 (11:00→13:00)
== END 2018-07-14 18:55 | disposition left against medical advice (07) ==
LOC: NEDA 09:00 → NEPC 09:00 → OBSVTOIN 12:11 → NEDA 18:54
PROVIDERS: ADMIT Internal Medicine; ATTEND Internal Medicine
DX: M87.9 Osteonecrosis, unspecified; Z88.1 Allergy status to other antibiotic agents; Z88.2 Allergy status to sulfonamides; Z86.14 Personal history of Methicillin resistant Staphylococcus aureus infection; M17.11 Unilateral primary osteoarthritis, right knee; R79.82 Elevated C-reactive protein (CRP); M25.511 Pain in right shoulder; M25.061 Hemarthrosis, right knee; I50.9 Heart failure, unspecified; I48.91 Unspecified atrial fibrillation; I42.9 Cardiomyopathy, unspecified; Z91.041 Radiographic dye allergy status; Z79.01 Long term (current) use of anticoagulants; X50.1XXA Overexertion from prolonged static or awkward postures, initial encounter; Z87.891 Personal history of nicotine dependence

== ENCOUNTER 2018-08-16 13:56 | Inpatient (IN) ==
[2018-08-16] MEDS ORDERED: Dextrose 5%/Lactated Ringer's 1,000 ML IV.SIG SCH (15:45)
--- NOTE | 2018-08-16 15:54 | P.CONID ---
History of Present Illness Service: Infectious disease Consult date: 08/16/18 Requesting Physician: Gt Kearns Reason for Consult: Evaluate patient with septic right knee Primary Care Provider: No Primary Care Physician History of Present Illness: Patient seen and examined. Records reviewed. Patient is a 63-year-old male, presented to the hospital from Dr. Jennings's office for further evaluation and treatment of his right knee. Patient initially had surgery on his right knee after an injury back in summer 2016. He subsequently developed MRSA infection of his right knee and received IV antibiotic treatment at home. He was apparently initially on IV vancomycin, but he developed a rash and he completed treatment with IV Cubicin. In December 2017, he got admitted at [facility] and he was diagnosed to have MRSA sepsis, recurrent septic right knee, and a paraspinal abscess in T8. He was intubated at one point. He was also found to have cardiomyopathy with EF of less than 20%, moderate pulmonary hypertension, as well as left lower extremity DVT and bilateral pulmonary embolism. He was in the hospital from January 10 - January 28. He was discharged to [facility] where he stayed for about 5 days. During his hospitalization at [facility], he was also treated for E. coli ESBL positive pneumonia. When patient was discharged from [place], he was on IV Cubicin which reportedly he completed around March 01. There was some notes that he was supposed to be on doxycycline for about 6 weeks, but he could not remember ever taking doxycycline. In March 2018, April 20, he was here at [facility], and he had surgery on his right knee again for infection and it cultured out MRSA. It was sensitive to Cubicin, vancomycin, tetracycline, Bactrim, Zyvox, and rifampin. He received another course of IV Cubicin. Patient is a practicing internal medicine physician locally, and he has been managing his IV antibiotics at home. July 142017 he got admitted again this was after he twisted his knee and he developed swelling of the right knee. He was also having body pains, as well as fever and chills. The knee was aspirated, and it was bloody. According to the patient there was a culture done and it was negative. His CRP was 22 and sed rate 66 at that time. Patient stated that he received a dose of Cubicin prior to the arthrocentesis. He received 2 weeks of IV Cubicin at that time, and probably completed the treatment the first week of July. Patient has not been on any antibiotics since. Knee replacement was actually being discussed with him with plans to do it. However in the last several days he started having some mild leg, and not feeling well. He had noted increased swelling of his right knee with heat, as well as pain. He had some blood work done and his sed rate was 60, CRP 74, and he had a normal WBC. These were all done August 14. He went to see Dr. Jennings today and arthrocentesis was done in the office and they took out about 70 mL of purulent fluid. Patient was therefore brought into the hospital for further evaluation and treatment. He denies any respiratory complaint. Denies any urinary complaint. He has not had any recent skin infection. He has his normal 3-4 bowel movements per day and he attributes this to his irritable bowel syndrome. Infectious disease consultation has been requested to assist with his management. Review of Systems Constitutional: Reports body ache(s), Reports fatigue, Reports malaise, Denies chills, Denies fever(s), Denies night sweats Eyes: Denies discharge, Denies dry eyes Ears, Nose, Mouth, and Throat: Denies difficulty swallowing, Denies dry mouth, Denies ear pain, Denies facial pain, Denies nasal discharge, Denies sore throat Cardiovascular: Denies chest pain, Denies shortness of breath Respiratory: Denies chest congestion, Denies cough, Denies shortness of breath Gastrointestinal: Reports loose stools, Denies abdominal pain, Denies nausea, Denies pain with swallowing, Denies vomiting Genitourinary: Denies painful urination Musculoskeletal: Reports joint pain, Reports joint swelling, Reports limited joint movement, Denies back pain Skin/Breast: Denies rash, Denies sores Neurologic: Denies dizziness, Denies fainting PMFSH - History History Provided By: Patient - Medical History Medical History: Medical History (Last Updated 08/16/18 @ 15:47 by Suyapa Walters MD) Arthritis Cardiomyopathy Deep vein thrombosis (DVT) of left lower extremity Depression Fracture of thoracic spine GERD (gastroesophageal reflux disease) Hypothyroidism Low back pain Pulmonary embolism Pulmonary hypertension Sleep apnea Heart failure Knee injury MRSA (methicillin resistant Staphylococcus aureus) - Surgical History Surgical History: Surgical History (Last Reviewed 08/16/18 @ 14:49 by Suzy Mason RN) History of knee surgery - Family History Family History: Family History (Last Reviewed 08/16/18 @ 14:49 by Suzy Mason RN) Other Patient denies significant medical history - Tobacco History Second Hand Smoke Exposure: No Tobacco Use In Past 30 Days: No Smoking Status: Former smoker Tobacco Type: Cigarettes - Alcohol History How Often Do You Have a Drink Containing Alcohol: 4 or more times a week - Substance Use History Substance History: No History of Abuse - Travel History Recent Travel in the [place] Within the Last 8 Weeks: No Recent Travel Out of the Country Within the Last 8 Weeks: No - Immunization History Tetanus Immunization: >5 Years Tetanus Immunization Year if Known: 2009 Hx Influenza Vaccine This Season: No Medications and Allergies Allergies Allergy/AdvReac Type Severity Reaction Status Date / Time penicillin G Allergy Severe Rash Verified 08/16/18 15:14 Sulfa (Sulfonamide Allergy Severe Rash Verified 08/16/18 15:14 Antibiotics) vancomycin Allergy Severe Rash Verified 04/20/18 09:09 IVP DYE Allergy Unknown Nausea/Vomi Uncoded 11/23/17 10:51 ting Home Medications Medication Instructions Recorded Confirmed Type acyclovir 800 mg PO DAILY 07/14/18 08/16/18 History bupropion HCl 300 mg PO QAM 07/14/18 08/16/18 History carvedilol 12.5 mg PO DAILY 07/14/18 08/16/18 History dexlansoprazole [Dexilant] 60 mg PO DAILY 07/14/18 08/16/18 History levothyroxine [Synthroid] 88 mcg PO DAILY 07/14/18 08/16/18 History oxycodone-acetaminophen 10 - 325 mg PO Q6HR PRN 07/14/18 08/16/18 History prednisone 5 mg PO DAILY 07/14/18 08/16/18 History rivaroxaban [Xarelto] 20 mg PO DAILY 07/14/18 08/16/18 History vortioxetine [Trintellix] 10 mg PO DAILY 07/14/18 08/16/18 History sacubitril-valsartan [Entresto] 1 tab PO DAILY 08/16/18 08/16/18 History Exam Vital signs: Vital Signs 08/16/18 14:34 Temperature 97.7 F Pulse Rate 86 Respiratory Rate 20 Blood Pressure 128/79 Pulse Oximetry 96 Intake & Output 08/15/18 08/16/18 08/16/18 18:59 06:59 18:59 Weight 90 kg Other: Weight On Admission 90 kg Narrative: Physical Examination GENERAL: Patient is a well-nourished, well-developed patient, awake and alert , not in respiratory distress. SKIN: Cool and dry. No generalized rash, no ecchymoses and no evidence of embolic lesions. HEAD: Atraumatic. Normocephalic. No temporal wasting, or tenderness. EYES: [place] conjunctiva. No petechia or hemorrhage. Pupils equal, round and reactive to light. Extraocular movements full and intact. No scleral icterus. No injection or drainage. EARS, NOSE AND THROAT: Nose without bleeding or purulent nasal discharge. No sinus tenderness. Mucous membranes pink and moist. No oral lesions noted. No exudate. No oral thrush. NECK: Trachea midline. Supple and not tender, no meningeal signs CARDIOVASCULAR: Regular rate and rhythm. No murmurs, rubs or gallops heard RESPIRATORY: Clear to auscultation. Breath sounds equal bilaterally. No rales , wheezing or rhonchi ABDOMEN: Soft, non-tender, nondistended. Bowel sounds present and normoactive. No guarding. No rebound. No organomegaly. EXTREMITIES: No clubbing, cyanosis, or edema. R knee has joint effusion, swollen, (+) warmth, no erythema, able to flex to about 45 degrees. No calf tenderness. Well perfused and warm. NEUROLOGICAL: Awake and alert. Cranial nerves grossly intact. Motor grossly within normal limits. PSYCHIATRIC: Normal affect, calm and cooperative. LINE: No evidence of infection Results - Labs CBC & Chem 7: 08/16/18 15:00 08/16/18 21:00 Labs: Laboratory Results - last 24 hr 08/16/18 Unknown Synovial Crystals None Assessment and Plan - Plan Impression Septic R knee, recurrent problem, has had several surgeries and course of IV Abx Hx MRSA septic R knee, sepsis, and T8 paraspinal abscess Hx E coli ESBL PNA Sleep apnea Cardiomyopathy Allergy to PCN, tolerates cephalosporins Allergy to Vanco and Sulfa Hx PE and LLE DVT Recommendation 2 BC For MRI R knee To go to OR today Follow C/S and adjust Abx Will see what cultures show and decide on Abx ?Recurrent despite completing Rx with Cubicin, cause? IV He postop while waiting for C/S Explained plan to patient, Dr Hassan, that best to wait for C/S to decide on Rx when he gets D/C Monitor progress I will follow along with you Thank you for this consultation
[2018-08-16 16:01] LABS: Baso % (Auto) 0.4 % (0.0-2.0); Eos % (Auto) 0.1 % (0.0-4.0); Hematocrit 42.1 % (39.0-51.0); Hemoglobin 14.3 gm/dL (13.0-17.0); Lymph % (Auto) 11.2 % (9.0-44.0); Mean Corpuscular HGB Conc 34.1 % (32.0-36.0); Mean Corpuscular Hemoglobin 35.5 pg (27.0-34.0); Mean Corpuscular Volume 104.1 fL (80.0-100.0); Mean Platelet Volume 8.8 fL (7.0-11.0); Mono # (Auto) 0.6 th/mm3 (0.0-0.9); Mono % (Auto) 6.9 % (0.0-8.0); Neut # (Auto) 7.5 th/mm3 (1.8-7.7); Neut % (Auto) 81.4 % (16.0-70.0); Platelet Count 215 th/mm3 (150-450); Red Blood Count 4.04 mil/mm3 (4.50-5.90); Red Cell Distribution Width 16.6 % (11.6-17.2); White Blood Count 9.2 th/mm3 (4.0-11.0)
[2018-08-16 16:21] LABS: INR 0.9 Ratio
--- NOTE | 2018-08-16 17:33 | MR ---
EXAM DATE: 08/16/2018 5:20 PM EDT AGE/SEX: 63 years / Male INDICATIONS: Edema. CLINICAL DATA: This is the patient's initial encounter. Patient reports that signs and symptoms have been present for 1 week and indicates a pain score of 5/10. MEDICAL/SURGICAL HISTORY: Congestive heart failure. . Right knee surgery. COMPARISON: TLI, MR KNEE W/O CONTRAST, RIGHT, 08/29/2017. . TECHNIQUE: Multiplanar, multisequence MRI examination was performed with contrast and after the intr avenous administration of 9 ml Gadavist (gadobutrol) contrast as a single exam dose. FINDINGS: Cruciate Ligaments: ACL and PCL are intact. Menisci: The patient again has a very diminutive posterior horn and body of the medial meniscus whic h I believe is mostly postoperative. The lateral meniscus is relatively well-preserved. Collateral Ligaments: MCL and LCL complexes are intact. Marrow/Cartilage: There is some low-grade bony edema involving the medial joint space between the fe mur and the tibia, improved since August. There is a small area of osteonecrosis of the medial fem oral condyle. It is nearly bone on bone medially with marked joint space narrowing. There is marked narrowing of the patellar cartilage. There is a small subchondral cyst in the lateral tibial plateau which is new since August 2017. That measures 9 mm across Other: There is a moderate size joint effusion. There is diffuse enhancement of the synovium. There is extensive scarring and fullness in the infrapatellar fat pad. There is a small popliteal bursa charito wing diffuse enhancement. There is a small Brunner's cyst which does not show significant enhancement o f the capsule. Post Contrast: There is diffuse enhancement of synovium not unusual status post surgery. CONCLUSION: 1. There is marked chondral thinning involving the medial compartment with underlying areas of bony edema actually slightly improved since August 2017. There is a small new subchondral cyst in the lat eral tibial plateau along the central weightbearing portion measuring 9 mm across. Diminutive posteri or horn and body of the medial meniscus likely postoperative. Electronically signed by: Benjamin Correa MD 08/16/2018 5:32 PM EDT
[2018-08-16 17:40] LABS: Lymphocytes,Synovial Fluid 3 %; Neutrophils,Synovial Fluid 89 % (0-25)
[2018-08-16 17:58] LABS: Appearance,Synovial Fluid Marked (Clear); Color,Synovial Fluid Straw (Straw)
[2018-08-16] MEDS ORDERED: DAPTOmycin Inj 600 MG in Sodium Chlor 0.9% Inj 100 ML IV.SIG ONE (18:45)
[2018-08-16] MEDS ORDERED: fentaNYL Citrate Inj 100 MCG/2 ML Ampul ONE ×2 (19:08→19:57)
[2018-08-16] MEDS ORDERED: Bisacodyl 10 MG Supp RECTAL PRN (19:19)
[2018-08-16] MEDS ORDERED: Zolpidem Tartrate 5 MG Tablet PO PRN (19:19)
[2018-08-16] MEDS ORDERED: Post-op Orders (for Pharmacy) OTHER STA (19:19)
[2018-08-16] MEDS ORDERED: *Meperidine Inj 25 MG/ML Vial PERIprocedural Use ONLY ONE (19:50)
[2018-08-16] MEDS ORDERED: *morphine SULFATE 10 MG/ML PERIprocedure ONLY ONE (20:04)
[2018-08-16] MEDS: *morphine SULFATE 10 MG/ML PERIprocedure ONLY ONE ×4 (20:13→23:03)
[2018-08-16] MEDS ORDERED: Gadobutrol PF 10 MMOL/10 ML Vial (for RAD) IV.SIG ONE (20:16)
[2018-08-16] MEDS: HYDROmorphone PF Inj 2 MG/ML Vial ONE ×4 (20:33→23:04)
--- NOTE | 2018-08-16 21:35 | MP ---
cc: Gt Kearns MD,Suyapa Arzate,Bhupinder Frost,Saul DATE OF OPERATION: 08/16/2018 PREOPERATIVE DIAGNOSES: Right knee septic arthritis, synovitis. POSTOPERATIVE DIAGNOSES: Right knee septic arthritis, synovitis. PROCEDURE: Right knee arthrotomy, incision and drainage abscess, irrigation and debridement, complete synovectomy. SURGEON: Gt Kearns MD WREATH INSPECTOR: Vonda Estrada PA-C. TOURNIQUET TIME: 52 minutes at 250 mmHg. COMPLICATIONS: None. SPECIMEN: Entirely debrided soft tissue and synovium, 2 synovial cultures were taken for Gram stain, C and S, and aerobic, anaerobic culture and sensitivities and 1 synovial fluid was taken for Gram stain, C and S, aerobic, anaerobic C and S. Also, all culture sent for AP and fungal. PROCEDURE IN DETAIL: The patient was brought to the operating room and had satisfactory general anesthesia by Dr. Erick Dominguez, department of anesthesia. The right lower extremity was prepped and draped in the usual manner. The extremity was exsanguinated by elevation and tourniquet inflated to 250 mmHg. Anteromedial exposure of the knee was made. The patient was found to have what appeared to be probable septic arthritis, but this was drained. The patient was also found to have significant synovitis in almost pannus formation with synovitis coming over the femur and the proximal tibia. A complete synovectomy was performed sharply. The knee was then irrigated with 9000 mL of sterile saline antibiotic solution. The wound was closed over 2 Hemovac drains. The capsule and extensor mechanism were repaired with #2 Ti-Cron with #1 PDS suture. Subcutaneous closed with 2-0 PDS. Skin was approximated with interrupted 2-0 nylon. Sterile dressing applied. The patient tolerated the procedure well and was arrived to the recovery room in stable and satisfactory condition. Gt Kearns MD AWG/ct/do , 07:47 PM , 07:55 PM [facility]
[2018-08-16 22:11] LABS: Albumin 2.4 g/dL (3.4-5.0); Anion Gap 9 meq/L (5-15); Aspartate Aminotransferase 15 U/L (15-37); Blood Urea Nitrogen 15 mg/dL (7-18); Calcium 8.7 mg/dL (8.5-10.1); Chloride 104 meq/L (98-107); Glomerular Filtration Rate Greater Than 89 mL/min (>89); Glucose,Random 108 mg/dL (74-106); Potassium 4.3 meq/L (3.5-5.1); Sodium 139 meq/L (136-145)
[2018-08-16 22:12] LABS: Alanine Aminotransferase 19 U/L (12-78)
[2018-08-16 22:14] LABS: Alkaline Phosphatase 48 U/L (45-117); Total Protein 6.5 g/dL (6.4-8.2)
[2018-08-16] MEDS: oxyCODONE/Acetaminophen 10/325 Tablet PO PRN (22:52)
[2018-08-16] MEDS: Senna/Docusate Sodium 8.6/50 MG Tablet PO SCH (22:53)
[2018-08-16] MEDS: Morphine Inj 4 MG/ML Vial IV.PUSH PRN (23:54)
[2018-08-17] MEDS: Morphine Inj 4 MG/ML Vial IV.PUSH PRN ×4 (03:06→23:01)
[2018-08-17] MEDS: Levothyroxine 88 MCG Tablet PO SCH (05:10)
[2018-08-17] MEDS: oxyCODONE/Acetaminophen 10/325 Tablet PO PRN ×3 (05:10→17:13)
--- NOTE | 2018-08-17 06:37 | P.PNOP ---
Subjective Interval history: POD# 1 R Knee I&D C/O post op pain No chest pain;no SOB Explained operative findings,answered multiple questions Physical Exam Vital signs: Vital Signs 08/16/18 14:34 08/16/18 17:30 08/16/18 18:00 Temperature 97.7 F 98.2 F Pulse Rate 86 89 85 Respiratory Rate 20 15 24 Blood Pressure 128/79 131/80 142/87 H Pulse Oximetry 96 98 96 08/16/18 19:48 08/16/18 19:50 08/16/18 20:00 Temperature 98.1 F 97.7 F Pulse Rate 93 H 91 H 86 Respiratory Rate 24 20 17 Blood Pressure 203/93 H 196/117 H 175/93 H Pulse Oximetry 95 95 98 08/16/18 20:15 08/16/18 20:25 08/16/18 20:30 Temperature Pulse Rate 84 80 Respiratory Rate 16 16 16 Blood Pressure 159/90 H 150/86 H Pulse Oximetry 97 97 08/16/18 20:45 08/16/18 21:00 08/16/18 21:05 Temperature Pulse Rate 78 71 Respiratory Rate 16 18 16 Blood Pressure 145/86 H 147/91 H Pulse Oximetry 96 95 08/16/18 21:15 08/16/18 21:20 08/17/18 00:00 Temperature 97.9 F Pulse Rate 78 93 H Respiratory Rate 18 16 18 Blood Pressure 149/93 H 126/84 Pulse Oximetry 95 95 Intake & Output 08/16/18 08/16/18 08/17/18 06:59 18:59 06:59 Intake Total 0 / 0 900 / 900 Output Total 300 / 300 50 / 50 Balance -300 / -300 850 / 850 Weight 90 kg Intake: IV 200 / 200 Ofirmev Inj 1,000 mg In 100 ml 100 / 100 @ 0 mls/hr IV.SIG .STK-MED ONE Rx#:[id number] Cubicin Inj 600 MG In NS Inj 100 / 100 100 ML @ 200 mls/hr IV.SIG ONCE ONE Rx#:[id number] Oral 0 / 0 Anesthesia Amount 700 / 700 Output: Urine 300 / 300 Estimated Blood Loss 50 / 50 Other: Weight On Admission 90 kg Narrative: N/V intact Negative rossy's;no calf tenderness Dressings dry;minimal drainage in hemavac drain Results - Labs CBC & Chem 7: 08/16/18 15:00 08/16/18 21:00 Laboratory Results - last 24 hr 08/16/18 08/16/18 08/16/18 15:00 15:00 21:00 WBC 9.2 RBC 4.04 L Hgb 14.3 Hct 42.1 MCV 104.1 H MCH 35.5 H MCHC 34.1 RDW 16.6 Plt Count 215 MPV 8.8 Neut % (Auto) 81.4 H Lymph % (Auto) 11.2 [place] % (Auto) 6.9 Eos % (Auto) 0.1 Baso % (Auto) 0.4 Neut # (Auto) 7.5 Lymph # (Auto) 1.0 [place] # (Auto) 0.6 Eos # (Auto) 0.0 Baso # (Auto) 0.0 WBC Differential . Differential Comment Auto diff final PT 9.0 L INR 0.9 Sodium 139 Potassium 4.3 Chloride 104 Carbon Dioxide 26.0 Anion Gap 9 BUN 15 Creatinine 0.80 Estimated GFR Greater than 89 Random Glucose 108 H Calcium 8.7 Total Bilirubin 0.3 AST 15 ALT 19 Alkaline Phosphatase 48 Total Protein 6.5 Albumin 2.4 L Synovial Color Synovial Appearance Synovial RBC Synovial Nuc Cells Synovial Neutrophils Synovial Lymphocytes Synovial Monocytes Synovial Crystals Rheumatoid Factor Scrn Negative Rheumatoid Factor Titer Not Reportable 08/16/18 08/16/18 Unknown Unknown WBC RBC Hgb Hct MCV MCH MCHC RDW Plt Count MPV Neut % (Auto) Lymph % (Auto) [place] % (Auto) Eos % (Auto) Baso % (Auto) Neut # (Auto) Lymph # (Auto) [place] # (Auto) Eos # (Auto) Baso # (Auto) WBC Differential Differential Comment PT INR Sodium Potassium Chloride Carbon Dioxide Anion Gap BUN Creatinine Estimated GFR Random Glucose Calcium Total Bilirubin AST ALT Alkaline Phosphatase Total Protein Albumin Synovial Color Straw Synovial Appearance Marked H Synovial RBC 1300 H Synovial Nuc Cells 64425 H Synovial Neutrophils 89 H Synovial Lymphocytes 3 Synovial Monocytes 8 Synovial Crystals None Rheumatoid Factor Scrn Rheumatoid Factor Titer - Imaging Impressions Knee MRI 08/16/18 14:23 CONCLUSION: 1. There is marked chondral thinning involving the medial compartment with underlying areas of bony edema actually slightly improved since August 2017. There is a small new subchondral cyst in the lateral tibial plateau along the central weightbearing portion measuring 9 mm across. Diminutive posterior horn and body of the medial meniscus likely postoperative. Assessment and Plan - Assessment and Plan Await multiple C&S PICC line today Medical treatment per Shanda Walters MRI and operative findings show no indication of osteomyelitis Albumin 2.4-secondary to malnutrition;had long discussion with patient;he declines human resources file clerk evaluation today
[2018-08-17] MEDS: VORTIOXETINE 10 MG PO SCH (08:59)
[2018-08-17] MEDS: Senna/Docusate Sodium 8.6/50 MG Tablet PO SCH ×2 (09:00→22:07)
[2018-08-17] MEDS: Acyclovir 800 MG Tablet PO SCH (09:00)
[2018-08-17] MEDS: Rivaroxaban 20 MG Tablet PO SCH (09:00)
[2018-08-17] MEDS: buPROPion 150 MG 12 HR Tablet PO SCH (09:01)
[2018-08-17] MEDS: predniSONE 5 MG Tablet PO SCH (09:02)
[2018-08-17] MEDS: Carvedilol 12.5 MG Tablet PO SCH (09:02)
[2018-08-17] MEDS ORDERED: Heparin Central Flush 100 UNIT/ML 5 ML Vial IV.FLUSH PRN (14:05)
--- NOTE | 2018-08-17 17:15 | ECG ---
Date Performed: 08/16/2018 Time Performed: 18:00:03 PTAGE: 63 years EKG: Sinus rhythm WITH SINUS ARRHYTHMIA BORDERLINE LEFT AXIS DEVIATION MINIMAL VOLTAGE CRITERIA FOR LVH, CONSIDER NORM AL VARIANT NONSPECIFIC T-WAVE ABNORMALITY BORDERLINE ECG NO PREVIOUS TRACING DOCTOR: Leroy Tam Interpretating Date/Time 08/17/2018 17:14:36
--- NOTE | 2018-08-17 17:24 | P.CONCA ---
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[facility] AF and EF of 20-25% admitted for open knee exploration for septic arthitis he is in [facility] gamble had his echo repeated to see if his EF has increased Review of Systems Eyes: Denies blind spots, Denies blurry vision, Denies bulging eyes, Denies change in vision, Denies double vision, Denies discharge, Denies dry eyes, Denies floaters, Denies irritation, Denies itchy eyes, Denies loss of vision, Denies pain, Denies requires corrective lenses, Denies sensitivity to light, Denies other Ears, Nose, Mouth, and Throat: Denies abnormal hearing, Denies bleeding gums, Denies bad breath, Denies change in voice, Denies dental pain, Denies difficulty swallowing, Denies dizziness, Denies dry mouth, Denies ear discharge , Denies ear pain, Denies facial pain, Denies headache(s), Denies hearing loss, Denies hoarseness, Denies lip swelling, Denies nosebleed, Denies mouth lesions, Denies mouth pain, Denies nasal congestion, Denies nasal discharge, Denies nasal obstruction, Denies nasal trauma, Denies neck lump, Denies neck pain, Denies nose pain, Denies pain with swallowing, Denies poor balance, Denies post nasal drip, Denies ringing in the ears, Denies sinus pain, Denies sinus pressure , Denies sore throat, Denies throat swelling, Denies tongue swelling, Denies other Respiratory: Denies change in phlegm color, Denies chest congestion, Denies cough, Denies coughing up blood, Denies excessive phlegm production (history of GERD), Denies pain on inspiration, Denies pain with cough, Denies shortness of breath, Denies shortness of breath with activity, Denies snoring, Denies stridor , Denies wheezing, Denies other Skin/Breast: Denies acne, Denies bleeding lesions, Denies boil, Denies breast swelling, Denies breast skin changes, Denies breast pain, Denies breast lump, Denies change in breast shape, Denies change in hair, Denies change in skin color, Denies changing lesions, Denies dry skin, Denies excessive hair growth, Denies hair loss, Denies itching, Denies lesions, Denies nail changes, Denies new lesions, Denies nipple discharge, Denies non-healing lesions, Denies redness , Denies sensitivity to light, Denies rash, Denies skin pain, Denies skin ulcer , Denies sores, Denies stretch mathias, Denies unusual bruising, Denies wounds, Denies yellowing of the skin, Denies other Endocrine: Denies cold intolerance, Denies excessive sweating, Denies flushing, Denies heat intolerance, Denies increased hunger, Denies increased thirst, Denies increased urination, Denies rapid, pounding, or irregular heartbeat, Denies other PMFSH - History History Provided By: Patient - Medical History Medical History: Medical History (Last Updated 08/16/18 @ 15:47 by Suyapa Walters MD) Arthritis Cardiomyopathy Deep vein thrombosis (DVT) of left lower extremity Depression Fracture of thoracic spine GERD (gastroesophageal reflux disease) Hypothyroidism Low back pain Pulmonary embolism Pulmonary hypertension Sleep apnea Heart failure Knee injury MRSA (methicillin resistant Staphylococcus aureus) - Surgical History Surgical History: Surgical History (Last Reviewed 08/16/18 @ 14:49 by Suzy Mason RN) History of knee surgery - Family History Family History: Family History (Last Reviewed 08/16/18 @ 14:49 by Suzy Mason RN) Other Patient denies significant medical history - Tobacco History Second Hand Smoke Exposure: No Tobacco Use In Past 30 Days: No Smoking Status: Former smoker Tobacco Type: Cigarettes - Alcohol History How Often Do You Have a Drink Containing Alcohol: 4 or more times a week - Substance Use History Substance History: No History of Abuse - Travel History Recent Travel in the [place] Within the Last 8 Weeks: No Recent Travel Out of the Country Within the Last 8 Weeks: No - Immunization History Tetanus Immunization: >5 Years Tetanus Immunization Year if Known: 2009 Hx Influenza Vaccine This Season: No Medications and Allergies Active Medications: Active Medications Acyclovir (Zovirax) 800 mg PO DAILY [facility] Last Admin: 08/17/18 09:00 Dose: 800 mg Al Hydroxide/Mg Hydroxide (Milk Of Magnesia Liq) 30 ml PO BID PRN PRN Reason: Mild Constipation Bisacodyl (Dulcolax Supp) 10 mg RECTAL DAILY PRN PRN Reason: SEVERE CONSITIPATION Bupropion HCl (Wellbutrin Sr) 300 mg PO DAILY [facility] Last Admin: 08/17/18 09:01 Dose: 300 mg Carvedilol (Coreg) 12.5 mg PO DAILY [facility] Last Admin: 08/17/18 09:02 Dose: 12.5 mg Heparin Sodium (Porcine) (Heparin Central Flush) 0 unit IV.FLUSH DAILY [facility] Heparin Sodium (Porcine) (Heparin Central Flush) 0 unit IV.FLUSH PRN PRN PRN Reason: Flush PICC Line Lactated Ringer's (Lr 1000 Ml Inj) 1,000 mls @ 80 mls/hr IV.CONT .[id number] [facility] Last Admin: 08/17/18 09:03 Dose: 80 mls/hr Daptomycin 600 mg/ Sodium (Chloride) 100 mls @ 200 mls/hr IV.SIG Q24H [facility] Lactulose (Lactulose Liq) 30 ml PO DAILY PRN PRN Reason: SEVERE CONSITIPATION Levothyroxine Sodium (Synthroid) 88 mcg PO DAILY@0600 [facility] Last Admin: 08/17/18 05:10 Dose: 88 mcg Miscellaneous Information ([facility]) 1 each OTHER UNSCH PRN PRN Reason: SEE LABEL COMMENTS Stop: 08/17/18 20:14 Morphine Sulfate (Morphine Inj) 4 mg IV.PUSH Q3H PRN PRN Reason: BREAKTHROUGH PAIN Last Admin: 08/17/18 16:26 Dose: 4 mg Ondansetron HCl (Zofran Odt) 4 mg PO Q6H PRN PRN Reason: NAUSEA OR VOMITING Oxycodone/Acetaminophen (Percocet 10/325 Mg) 1 tab PO Q6H PRN PRN Reason: PAIN SCALE 1 TO 10 Last Admin: 08/17/18 17:13 Dose: 1 tab Pantoprazole Sodium (Protonix) 40 mg PO DAILY [facility] Last Admin: 08/17/18 09:03 Dose: 40 mg Pt Own (Vortioxetine ([Trintellix] 10 Mg)) 1 each PO DAILY [facility] Last Admin: 08/17/18 08:59 Dose: Not Given Prednisone (Deltasone) 5 mg PO DAILY [facility] Last Admin: 08/17/18 09:02 Dose: 5 mg Rivaroxaban (Xarelto) 20 mg PO DAILY [facility] Last Admin: 08/17/18 09:00 Dose: 20 mg Sacubitril/Valsartan (Entresto 49 Mg/51 Mg) 1 tab PO DAILY [facility] Last Admin: 08/17/18 09:01 Dose: 1 tab Senna/Docusate Sodium (Shakila-Colace) 1 tab PO BID [facility] Last Admin: 08/17/18 09:00 Dose: Not Given Sennosides (Senokot) 17.2 mg PO BID PRN PRN Reason: Moderate Constipation Sodium Chloride (Ns Flush) 2 ml IV.FLUSH BID [facility] Last Admin: 08/17/18 09:00 Dose: 2 ml Sodium Chloride (Ns Flush) 2 ml IV.FLUSH PRN PRN PRN Reason: FLUSH AFTER USING IV ACCESS Sodium Chloride (Ns Flush) 0 ml IV.FLUSH DAILY [facility] Sodium Chloride (Ns Flush) 0 ml IV.FLUSH PRN PRN PRN Reason: FLUSH AFTER USING IV ACCESS Sodium Chloride (Ns Flush) 0 ml IV.FLUSH PRN PRN PRN Reason: Flush After Blood Draws Thiamine HCl (Vitamin B1) 100 mg PO BID [facility] Last Admin: 08/17/18 09:02 Dose: 100 mg Zolpidem Tartrate (Ambien) 5 mg PO HS PRN PRN Reason: INSOMNIA Allergies Allergy/AdvReac Type Severity Reaction Status Date / Time penicillin G Allergy Severe Rash Verified 08/16/18 15:14 Sulfa (Sulfonamide Allergy Severe Rash Verified 08/16/18 15:14 Antibiotics) vancomycin Allergy Severe Rash Verified 04/20/18 09:09 IVP DYE Allergy Unknown Nausea/Vomi Uncoded 11/23/17 10:51 ting Home Medications Medication Instructions Recorded Confirmed Type acyclovir 800 mg PO DAILY 07/14/18 08/16/18 History bupropion HCl 300 mg PO QAM 07/14/18 08/16/18 History carvedilol 12.5 mg PO DAILY 07/14/18 08/16/18 History dexlansoprazole [Dexilant] 60 mg PO DAILY 07/14/18 08/16/18 History levothyroxine [Synthroid] 88 mcg PO DAILY 07/14/18 08/16/18 History oxycodone-acetaminophen 10 - 325 mg PO Q6HR PRN 07/14/18 08/16/18 History prednisone 5 mg PO DAILY 07/14/18 08/16/18 History rivaroxaban [Xarelto] 20 mg PO DAILY 07/14/18 08/16/18 History vortioxetine [Trintellix] 10 mg PO DAILY 07/14/18 08/16/18 History sacubitril-valsartan [Entresto] 1 tab PO DAILY 08/16/18 08/16/18 History Exam Vital signs: Vital Signs 08/16/18 17:30 08/16/18 18:00 08/16/18 19:48 Temperature 98.2 F 98.1 F Pulse Rate 89 85 93 H Respiratory Rate 15 24 24 Blood Pressure 131/80 142/87 H 203/93 H Pulse Oximetry 98 96 95 08/16/18 19:50 08/16/18 20:00 08/16/18 20:15 Temperature 97.7 F Pulse Rate 91 H 86 84 Respiratory Rate 20 17 16 Blood Pressure 196/117 H 175/93 H 159/90 H Pulse Oximetry 95 98 97 08/16/18 20:25 08/16/18 20:30 08/16/18 20:45 Temperature Pulse Rate 80 78 Respiratory Rate 16 16 16 Blood Pressure 150/86 H 145/86 H Pulse Oximetry 97 96 08/16/18 21:00 08/16/18 21:05 08/16/18 21:15 Temperature Pulse Rate 71 78 Respiratory Rate 18 16 18 Blood Pressure 147/91 H 149/93 H Pulse Oximetry 95 95 08/16/18 21:20 08/17/18 00:00 08/17/18 08:00 Temperature 97.9 F 97.9 F Pulse Rate 93 H 82 Respiratory Rate 16 18 19 Blood Pressure 126/84 150/90 H Pulse Oximetry 95 96 08/17/18 12:00 Temperature 98.1 F Pulse Rate 84 Respiratory Rate 18 Blood Pressure 138/79 Pulse Oximetry 96 Intake & Output 08/16/18 08/17/18 08/17/18 18:59 06:59 18:59 Intake Total 0 / 0 900 / 900 1000 / 1000 Output Total 300 / 300 450 / 450 Balance -300 / -300 450 / 450 1000 / 1000 Weight 90 kg 101 kg Intake: IV 200 / 200 1000 / 1000 LR 1000 mL Inj 1,000 ML @ 80 1000 / 1000 mls/hr IV.CONT .[id number] [facility] Rx# :[id number] Ofirmev Inj 1,000 mg In 100 ml 100 / 100 @ 0 mls/hr IV.SIG .STK-MED ONE Rx#:[id number] Cubicin Inj 600 MG In NS Inj 100 / 100 100 ML @ 200 mls/hr IV.SIG ONCE ONE Rx#:[id number] Oral 0 / 0 Anesthesia Amount 700 / 700 Output: Urine 300 / 300 400 / 400 Estimated Blood Loss 50 / 50 Other: Date of Last Bowel Movement 08/16/18 Weight On Admission 90 kg - Constitutional no acute distress, mild distress - Routine HEENT Exam Head: Present: normocephalic Eye: Present: EOMI, PERRL - Routine Chest/Breast/Axilla Exam Comments: Regular rhythm no murmur or gallop - Routine Abdominal Exam Present: soft, normoactive bowel sounds - Routine Neurological Exam Present: alert, oriented X3, CN II-XII intact sensroy motor intact Results 08/16/18 15:00 08/16/18 21:00 Cardiac Enzymes 08/16/18 Range/Units 21:00 AST 15 (15-37) U/L Comprehensive Metabolic Panel 08/16/18 Range/Units 21:00 Sodium 139 (136-145) meq/L Potassium 4.3 (3.5-5.1) meq/L Chloride 104 (98-107) meq/L Carbon Dioxide 26.0 (21.0-32.0) meq/L BUN 15 (7-18) mg/dL Creatinine 0.80 (0.60-1.30) mg/dL Calcium 8.7 (8.5-10.1) mg/dL AST 15 (15-37) U/L ALT 19 (12-78) U/L Alkaline Phosphatase 48 (45-117) U/L Total Protein 6.5 (6.4-8.2) g/dL Albumin 2.4 L (3.4-5.0) g/dL Intake and Output 08/17/18 08/17/18 08/17/18 06:59 14:59 22:59 Intake Total 200 / 200 1000 / 1000 Output Total 400 / 400 Balance -200 / -200 1000 / 1000 Intake: IV 200 / 200 1000 / 1000 LR 1000 mL Inj 1,000 ML @ 80 1000 / 1000 mls/hr IV.CONT .[id number] [facility] Rx# :[id number] Ofirmev Inj 1,000 mg In 100 ml 100 / 100 @ 0 mls/hr IV.SIG .STK-MED ONE Rx#:[id number] Cubicin Inj 600 MG In NS Inj 100 / 100 100 ML @ 200 mls/hr IV.SIG ONCE [facility] Rx#:[id number] Output: Urine 400 / 400 Other: Date of Last Bowel Movement 08/16/18 Weight 101 kg Assessment and Plan - Assessment (1) CHF (congestive heart failure) Code(s): I50.9 - Heart failure, unspecified Status: Resolved - Plan Ok for discharge will see him as OP
[2018-08-17] MEDS ORDERED: DAPTOmycin Inj 600 MG in Sodium Chlor 0.9% Inj 100 ML IV.SIG SCH (20:00)
[2018-08-18] MEDS: oxyCODONE/Acetaminophen 10/325 Tablet PO PRN ×2 (00:15→07:44)
[2018-08-18] MEDS: Morphine Inj 4 MG/ML Vial IV.PUSH PRN ×3 (03:16→09:31)
[2018-08-18] MEDS: Levothyroxine 88 MCG Tablet PO SCH (06:25)
--- NOTE | 2018-08-18 06:29 | P.PNOP ---
Subjective Interval history: POD#2 Less pain ;patient wants to go home today Physical Exam Vital signs: Vital Signs 08/17/18 08:00 08/17/18 12:00 08/17/18 16:00 Temperature 97.9 F 98.1 F 98.2 F Pulse Rate 82 84 85 Respiratory Rate 19 18 18 Blood Pressure 150/90 H 138/79 155/103 H Pulse Oximetry 96 96 97 08/17/18 20:00 08/17/18 23:09 08/18/18 00:42 Temperature 98.2 F 98.8 F Pulse Rate 92 H 98 H Respiratory Rate 18 20 17 Blood Pressure 162/89 H 175/105 H Pulse Oximetry 96 95 08/18/18 03:43 Temperature Pulse Rate Respiratory Rate 20 Blood Pressure Pulse Oximetry Intake & Output 08/17/18 08/17/18 08/18/18 06:59 18:59 06:59 Intake Total 900 / 900 1360 / 1360 1580 / 1580 Output Total 450 / 450 1000 / 1000 780 / 780 Balance 450 / 450 360 / 360 800 / 800 Weight 101 kg 101 kg Intake: IV 200 / 200 1000 / 1000 1100 / 1100 LR 1000 mL Inj 1,000 ML @ 80 1000 / 1000 1000 / 1000 mls/hr IV.CONT .[id number] [facility] Rx# :[id number] Ofirmev Inj 1,000 mg In 100 ml 100 / 100 @ 0 mls/hr IV.SIG .STK-MED ONE Rx#:[id number] Cubicin Inj 600 MG In NS Inj 100 / 100 100 / 100 100 ML @ 200 mls/hr IV.SIG Q24H [facility] Rx#:[id number] Oral 360 / 360 480 / 480 Anesthesia Amount 700 / 700 Output: Urine 400 / 400 1000 / 1000 780 / 780 Estimated Blood Loss 50 / 50 Other: Date of Last Bowel Movement 08/16/18 # Bowel Movements 1 Narrative: N/V intact No drainage Neg rossy's,no calf pain Results - Labs CBC & Chem 7: 08/16/18 15:00 08/16/18 21:00 Microbiology 08/16/18 18:50 Fluid - Synovial Fluid Gram Stain - Final 08/16/18 18:50 Fluid - Synovial Fluid Wound Culture - Preliminary No growth. 08/16/18 18:50 Tissue - Knee Gram Stain - Final 08/16/18 18:50 Tissue - Knee Wound Culture - Preliminary No growth. 08/16/18 18:50 Tissue - Knee Gram Stain - Final 08/16/18 18:50 Tissue - Knee Wound Culture - Preliminary No growth. 08/16/18 Unknown Fluid - Synovial Fluid Gram Stain - Final 08/16/18 Unknown Fluid - Synovial Fluid Body Fluid Culture - Preliminary No growth in 24 hours 08/16/18 21:10 Blood - Peripheral Aerobic Blood Culture - Preliminary No growth in 1 day 08/16/18 21:10 Blood - Peripheral Anaerobic Blood Culture - Preliminary No growth in 1 day 08/16/18 21:00 Blood - Peripheral Aerobic Blood Culture - Preliminary No growth in 1 day 08/16/18 21:00 Blood - Peripheral Anaerobic Blood Culture - Preliminary No growth in 1 day 08/16/18 18:50 Tissue - Knee Fungal Smear - Final No fungal elements seen 08/16/18 18:50 Tissue - Knee Fungal Smear - Final No fungal elements seen 08/16/18 18:50 Fluid - Synovial Fluid Fungal Smear - Final No fungal elements seen Assessment and Plan - Assessment and Plan Await final multiple C&S,no growth so far PICC line inserted yesterday Cardiology evaluation noted Medical treatment per [place] MRI and operative findings show no indication of osteomyelitis Albumin 2.4-secondary to malnutrition;had long discussion with patient;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
[2018-08-18] MEDS: Carvedilol 12.5 MG Tablet PO SCH ×2 (07:43→08:05)
[2018-08-18] MEDS: Rivaroxaban 20 MG Tablet PO SCH ×2 (07:43→08:07)
[2018-08-18] MEDS: predniSONE 5 MG Tablet PO SCH ×2 (07:44→08:05)
[2018-08-18] MEDS: Acyclovir 800 MG Tablet PO SCH ×2 (07:44→08:07)
[2018-08-18] MEDS: Senna/Docusate Sodium 8.6/50 MG Tablet PO SCH ×2 (07:44→08:06)
[2018-08-18] MEDS: buPROPion 150 MG 12 HR Tablet PO SCH ×2 (07:45→08:06)
[2018-08-18] MEDS: Heparin Central Flush 100 UNIT/ML 5 ML Vial IV.FLUSH SCH ×2 (07:47→08:05)
[2018-08-18] MEDS: VORTIOXETINE 10 MG PO SCH (08:06)
[2018-08-18 08:32] VITALS: BP 158/92; PULSE 77; TEMP 97.9; O2SAT 94
--- NOTE | 2018-08-18 10:36 | P.DCO ---
Post Hospital Infusion Therapy Patient Weight: 101 kg - Diagnosis (1) Septic arthritis of knee, right Code(s): M00.9 - Pyogenic arthritis, unspecified - Administer Medication Daptomycin Dose: 600 mg IV Directions: q 24 hours Stop Treatment: 09/28/18 - Additional Information Additional Instructions: [x] Peripheral flush and dressing changes per protocol [x] Implanted port and central inspector conveyor line: * Implanted port: 10 ml Normal Saline followed by 5 ml Heparin 100 units/ml Heparin flush after each use and monthly to maintain. [] May leave port accessed during therapy. [] May leave peripheral site accessed for duration of therapy. [x] If patient has SOB or respiratory distress, check oxygen saturation. If less than 90% or clinical signs of respiratory distress, administer oxygen at 2 L/min. via nasal cannula and notify physician. [x] Anaphylaxis/Reaction orders: * Stop infusion. * Keep IV line open with saline flush. * Notify physician. * Monitor vital signs every 15 minutes until symptoms resolve. * Check Oxygen saturation; Oxygen at 2 L/min. via nasal cannula if less than 90% or clinical signs of respiratory distress. * Administer diphenhydramine (Benadryl) 25 mg IV STAT, (unless patient has received as pre-med). May repeat once, if necessary. * Solu-Cortef 250 mg IVP over 30-60 seconds, use 100 mg vials for each dissolution. * Epinephrine (1mg/1 ml) 0.3 mg subcutaneously or IVP now with any signs of respiratory distress. * Check with physician for new additional pre-med orders if patient is re- challenged or re-treated. [x] May remove PICC line when treatment complete, after confirming with Physician. [x] If the patient is admitted to the hospital, the ED, or transferred via [facility] , complete transfer form including medication reconciliation order sheet. Weekly Labs: CBC w/diff, Creatinine (labs weekly, copy to al, Dr Vega and Dr Deshaun Kearns), Serum CK Levels Allergies penicillin G Allergy (Severe, Verified 08/16/18 15:14) Rash Sulfa (Sulfonamide Antibiotics) Allergy (Severe, Verified 08/16/18 15:14) Rash vancomycin Allergy (Severe, Verified 04/20/18 09:09) Rash IVP DYE Allergy (Unknown, Uncoded 11/23/17 10:51) Nausea/Vomiting
--- NOTE | 2018-08-18 10:49 | P.PNID ---
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 S/P debridement. C/S MRSA No complaints Afebrile PICC in place Anxious to go home Pain under control Antibiotics: Cubicin Lines: PICC Past Medical History: Reviewed Allergies/Adverse Reactions: Allergies penicillin G Allergy (Severe, Verified 08/16/18 15:14) Rash Sulfa (Sulfonamide Antibiotics) Allergy (Severe, Verified 08/16/18 15:14) Rash vancomycin Allergy (Severe, Verified 04/20/18 09:09) Rash IVP DYE Allergy (Unknown, Uncoded 11/23/17 10:51) Nausea/Vomiting Objective Vital Signs 08/17/18 12:00 08/17/18 16:00 08/17/18 20:00 Temperature 98.1 F 98.2 F 98.2 F Pulse Rate 84 85 92 H Respiratory Rate 18 18 18 Blood Pressure 138/79 155/103 H 162/89 H Pulse Oximetry 96 97 96 08/17/18 23:09 08/18/18 00:42 08/18/18 03:43 Temperature 98.8 F Pulse Rate 98 H Respiratory Rate 20 17 20 Blood Pressure 175/105 H Pulse Oximetry 95 08/18/18 04:00 08/18/18 06:30 08/18/18 07:31 Temperature Pulse Rate Respiratory Rate 20 Blood Pressure 163/84 H 181/103 H Pulse Oximetry 08/18/18 08:00 08/18/18 09:30 Temperature 97.9 F Pulse Rate 77 Respiratory Rate 17 20 Blood Pressure 158/92 H Pulse Oximetry 94 L Intake & Output 08/17/18 08/18/18 08/18/18 18:59 06:59 18:59 Intake Total 1360 / 1360 1580 / 1580 Output Total 1000 / 1000 780 / 780 Balance 360 / 360 800 / 800 Weight 101 kg 101 kg Intake: IV 1000 / 1000 1100 / 1100 LR 1000 mL Inj 1,000 ML @ 80 1000 / 1000 1000 / 1000 mls/hr IV.CONT .[id number] [facility] Rx# :[id number] Cubicin Inj 600 MG In NS Inj 100 / 100 100 ML @ 200 mls/hr IV.SIG Q24H [facility] Rx#:[id number] Oral 360 / 360 480 / 480 Output: Urine 1000 / 1000 780 / 780 Other: Date of Last Bowel Movement 08/16/18 # Bowel Movements 1 08/16/18 18:50 Fluid - Synovial Fluid Gram Stain - Final 08/16/18 18:50 Fluid - Synovial Fluid Wound Culture - Final S. aureus MRSA 08/16/18 18:50 Tissue - Knee Gram Stain - Final 08/16/18 18:50 Tissue - Knee Wound Culture - Final S. aureus MRSA 08/16/18 Unknown Fluid - Synovial Fluid Gram Stain - Final 08/16/18 Unknown Fluid - Synovial Fluid Body Fluid Culture - Final S. aureus MRSA 08/16/18 18:50 Tissue - Knee Gram Stain - Final 08/16/18 18:50 Tissue - Knee Wound Culture - Preliminary S. aureus MRSA 08/16/18 18:50 Tissue - Knee Fungal Smear - Final No fungal elements seen 08/16/18 18:50 Tissue - Knee Fungal Culture - Pending 08/16/18 18:50 Tissue - Knee Acid Fast Bacilli Smear - Pending 08/16/18 18:50 Tissue - Knee Mycobacterial Culture - Pending 08/16/18 21:10 Blood - Peripheral Aerobic Blood Culture - Preliminary No growth in 1 day 08/16/18 21:10 Blood - Peripheral Anaerobic Blood Culture - Preliminary No growth in 1 day 08/16/18 21:00 Blood - Peripheral Aerobic Blood Culture - Preliminary No growth in 1 day 08/16/18 21:00 Blood - Peripheral Anaerobic Blood Culture - Preliminary No growth in 1 day 08/16/18 18:50 Tissue - Knee Fungal Smear - Final No fungal elements seen 08/16/18 18:50 Tissue - Knee Fungal Culture - Pending 08/16/18 18:50 Fluid - Synovial Fluid Fungal Smear - Final No fungal elements seen 08/16/18 18:50 Fluid - Synovial Fluid Fungal Culture - Pending 08/16/18 18:50 Fluid - Synovial Fluid Acid Fast Bacilli Smear - Pending 08/16/18 18:50 Fluid - Synovial Fluid Mycobacterial Culture - Pending 08/16/18 18:50 Tissue - Knee Acid Fast Bacilli Smear - Pending 08/16/18 18:50 Tissue - Knee Mycobacterial Culture - Pending Lab - Hematology Results 08/16/18 15:00 WBC 9.2 RBC 4.04 L Hgb 14.3 Hct 42.1 MCV 104.1 H MCH 35.5 H MCHC 34.1 RDW 16.6 Plt Count 215 MPV 8.8 Neut % (Auto) 81.4 H Lymph % (Auto) 11.2 Rains % (Auto) 6.9 Eos % (Auto) 0.1 Baso % (Auto) 0.4 Neut # (Auto) 7.5 Lymph # (Auto) 1.0 Rains # (Auto) 0.6 Eos # (Auto) 0.0 Baso # (Auto) 0.0 WBC Differential . Differential Comment Auto diff final Lab - Chemistry Results 08/16/18 21:00 Sodium 139 Potassium 4.3 Chloride 104 Carbon Dioxide 26.0 Anion Gap 9 BUN 15 Creatinine 0.80 Estimated GFR Greater than 89 Random Glucose 108 H Calcium 8.7 Total Bilirubin 0.3 AST 15 ALT 19 Alkaline Phosphatase 48 Total Protein 6.5 Albumin 2.4 L Imaging: ITS Impressions Knee MRI 08/16/18 14:23 CONCLUSION: 1. There is marked chondral thinning involving the medial compartment with underlying areas of bony edema actually slightly improved since August 2017. There is a small new subchondral cyst in the lateral tibial plateau along the central weightbearing portion measuring 9 mm across. Diminutive posterior horn and body of the medial meniscus likely postoperative. Physical Exam: GENERAL: awake and alert, not in respiratory distress. SKIN: Cool and dry. No generalized rash, no ecchymoses and no evidence of embolic lesions. EYES: [place] conjunctiva. No petechia or hemorrhage. No scleral icterus. EARS, NOSE AND THROAT: Mucous membrane pink and moist. No oral lesions noted. No exudate. No oral thrush. NECK: Trachea midline. Supple and not tender RESPIRATORY: Clear to auscultation. Breath sounds equal bilaterally. No rales , wheezing or rhonchi ABDOMEN: Soft, non-tender, nondistended. Bowel sounds present and normoactive. No guarding. No rebound. No organomegaly. EXTREMITIES: R knee has dry and intact dressing, hemovac in place. NEUROLOGICAL: non-focal LINE: No evidence of infection Assessment and Plan (1) Septic arthritis of knee, right Status: Acute Code(s): M00.9 - Pyogenic arthritis, unspecified - Plan Impression Septic R knee, recurrent problem, has had several surgeries and course of IV Abx Hx MRSA septic R knee, sepsis, and T8 paraspinal abscess Hx E coli ESBL PNA Sleep apnea Cardiomyopathy Allergy to PCN, tolerates cephalosporins Allergy to Vanco and Sulfa Hx PE and LLE DVT Recommendation Continue IV Cubicin - plan 6 weeks then chronic oral suppression at least 4 months possibly up to one year - labs weekly while on IV Abx Monitor progress Explained plan to patient D/W Dr Deshaun Kearns Spoke with CM D/C once arrangements made
[2018-08-18 10:58] VITALS: RESP 18
[2018-08-18 16:30] LABS: HLA-B27 Result Negative
== END 2018-08-18 11:38 | disposition home or self-care (01) ==
LOC: NEPFCDU 13:56 → N07 17:44
PROVIDERS: ADMIT Orthopaedic Surgery Orthopaedic Surgery of the Spine; ATTEND Orthopaedic Surgery Orthopaedic Surgery of the Spine

== ENCOUNTER 2018-11-16 09:18 | Inpatient (IN) ==
[2018-11-16] MEDS ORDERED: Chlorhexidine Gluconate 2% 1 Pack (2 Cloths) TOPICAL ONE (09:45)
[2018-11-16] MEDS ORDERED: Metoprolol Tartrate 25 MG Tablet PO ONE (09:45)
[2018-11-16] MEDS ORDERED: Sodium Chlor 0.9% Inj 500 ML IV.CONT ONE (09:45)
[2018-11-16] MEDS ORDERED: Chlorhexidine 4% Topical 120 APPLIC/120 ML Bottle TOPICAL SCH (10:30)
[2018-11-16] MEDS ORDERED: Dexamethasone PF Inj 10 MG/ML Vial ONE (10:40)
[2018-11-16] MEDS ORDERED: Bupivacaine PF 0.25% Inj 30 ML Vial ONE (10:50)
[2018-11-16] MEDS ORDERED: Vancomycin Inj 1,000 MG in Sodium Chlor 0.9% Inj 250 ML IV.SIG SCH (11:00)
[2018-11-16] MEDS ORDERED: Sodium Chlor 0.9% Inj 73.07 ML, Ropivacaine 0.5% PF Inj 24.63 ML, Ketorolac Inj 30 MG, ... P-ARTICULR SCH ×5 (11:00)
[2018-11-16] MEDS ORDERED: ceFAZolin 2 GM Premix Inj 2 GM/50 ML PIGGYBACK IV.SIG SCH (11:00)
[2018-11-16] MEDS ORDERED: Bupivacaine PF 0.5% Inj 10 ML Vial ONE (11:15)
[2018-11-16] MEDS ORDERED: Propofol Inj 500 MG/50 ML Vial ONE (11:38)
[2018-11-16] MEDS ORDERED: Bupivacaine/Dextrose 0.75% Inj 2 ML Ampul ONE (11:39)
[2018-11-16] MEDS ORDERED: DAPTOmycin Inj 600 MG in Sodium Chlor 0.9% Inj 100 ML IV.SIG SCH (13:00)
[2018-11-16] MEDS ORDERED: Bupivacaine/Epinephrine Inj 0.25% 50 ML Vial ONE (15:16)
[2018-11-16] MEDS ORDERED: Post-op Orders (for Pharmacy) OTHER STA (15:39)
[2018-11-16] MEDS ORDERED: Bisacodyl 10 MG Supp RECTAL PRN (15:39)
[2018-11-16] MEDS ORDERED: oxyCODONE/Acetaminophen 10/325 Tablet PO PRN (15:39)
[2018-11-16] MEDS ORDERED: Morphine Inj 4 MG/ML Vial IV.PUSH PRN (15:39)
--- NOTE | 2018-11-16 15:49 | P.DCO ---
- Physical Therapy Physical Therapy: Gait training, Safety evaluation, Transfer training, bed to chair Knee: Total knee, Protocol: Right, Full weight bearing Canvas Knee Splint: Other (when sleeping at night time ) Right Lower Extremity Weight Bearing: Weight bearing as tolerated Left Lower Extremity Weight Bearing: Weight bearing as tolerated - Nursing RN: 3 days/week x 2 weeks Nursing: Dressing changes (clean incision with alcohol and apply dry, sterile dressing daily ) - Certification Need for Home Health services: I have seen patient Reece Hassan on 11/16/18. My clinical findings support the need for the requested home health care services because: Need for Home Health Services: Deconditioned with increased weakness, High risk of falls Homebound Certification: I certify that my clinical findings support that this patient is homebound because: Homebound Certification: Post-op weakness
[2018-11-16] MEDS ORDERED: fentaNYL Citrate Inj 100 MCG/2 ML Ampul ONE (15:50)
--- NOTE | 2018-11-16 16:17 | XR ---
EXAM DATE: 11/16/2018 4:13 PM EST AGE/SEX: 63 years / Male INDICATIONS: Status post arthroplasty. CLINICAL DATA: This is the patient's subsequent encounter. Patient reports that signs and symptoms h ave been present for 2 days and indicates a pain score of 0/10. MEDICAL/SURGICAL HISTORY: Congestive heart failure. . Right knee surgery. COMPARISON: No prior exams available for comparison. FINDINGS: AP and lateral views of the knee were obtained and demonstrate the patient status post arthroplasty. The femoral and tibial components are intact. The lateral joint space appears mildly wider than the m edial joint space. There are postoperative changes involving the patella. There are anterior skin sta ples and soft tissue swelling. There are surgical drains in place. CONCLUSION: Postoperative changes status post arthroplasty. The lateral joint space appears mildly wider than the medial joint space this is of unclear significance.. Electronically signed by: Curtis Grimm MD Board Certified Radiologist 11/16/2018 4:15 PM EST
--- NOTE | 2018-11-16 18:45 | P.OP ---
- Preoperative Diagnosis (1) Osteoarthritis of right knee - Postoperative Diagnosis (1) Osteoarthritis of right knee Date of procedure: 11/16/18 Procedure: Right total knee arthroplasty Anesthesia: GETA, regional, local Surgeon: Landon Kearns MD Clinical Laboratory Manager: Gt Kearns MD Operation and Findings: EBL: 100 cc INDICATION: This patient presents with long-standing arthritis of the knee. He had a history of septic arthritis. This is been treated medically and cleared. He has been off of antibiotics for approximately 3 months and has nearly normal serologic markers with C-reactive protein and WBC being normal. His mildly elevated Westergren sed rate but is suspect for an underlying rheumatologic condition. The attached records documents conservative measures. The patient now presents for surgical treatment. NOTE: Gt Kearns MD was present for the entire surgical procedure as my production assistant. In my medical opinion his skill and care was necessary for proper management of this patient. TOURNIQUET TIME: 98 minutes COMPANY: [employer] FEMUR: Size 8, posterior stabilized TIBIA: Size 7, fixed-bearing PATELLA: 35 mm POLYETHYLENE INSERT: 10 mm PROCEDURE: This patient was brought the operating room and anesthetized in the supine position. The patient was positioned supine on the table. The tourniquet was placed about the thigh, and the leg was scrubbed with alcohol followed by Hibiclens followed by ChloraPrep and draped sterilely. A timeout was done, and antibiotics were given. After exsanguination the tourniquet was inflated to 250 mmHg. An anterior incision was made and the previous incision was excised, and a median parapatellar arthrotomy was performed. The patella was released laterally and subluxed allowing freehand cut of the patella which was then sized. A metal cap was placed over the exposed patellar surface for protection. A submersible pilot hole was placed in the distal femur allowing a 4 valgus cut removing 9 mm from the distal femur. Anterior posterior and chamfer cuts were made. The posterior stabilize osteotomy was made. The attention was directed to the tibia. Retractors were positioned. The external alignment guide was used allowing the lateral tibia to be used as referencing guide and cut utilizing an oscillating saw taking care to avoid any injury to the surrounding soft tissues. This was sized properly. Trial reduction showed that the insert fit nicely. The patient had range of motion extension 0 flexion 120. A medial release was necessary. The bony surfaces prepared. On the back table 2 packets of methylmethacrylate were mixed. The components were cemented. Excess cement was removed. The tourniquet let down and hemostasis was controlled. The final plastic insert was inserted. Range of motion was the same as previously noted. A drain was brought through a separate stab incision. The arthrotomy was repaired with interrupted #1 Vicryl suture, subcutaneous tissue 2-0 Vicryl suture and skin with metallic yves A sterile dressing was applied. Sponge counts, needle counts and instrument counts were all correct. The patient tolerated procedure well and was taken to recovery in satisfactory condition. FINDINGS: There was no evidence of infection or suspicious areas of abnormal activity. This had the appearance of chronic arthritis and some synovial chronic changes
[2018-11-16] MEDS: oxyCODONE/Acetaminophen 10/325 Tablet PO PRN (19:22)
[2018-11-16] MEDS: Senna/Docusate Sodium 8.6/50 MG Tablet PO SCH (20:46)
[2018-11-16] MEDS: buPROPion 150 MG 12 HR Tablet PO SCH (20:47)
[2018-11-16] MEDS ORDERED: Zolpidem Tartrate 5 MG Tablet PO PRN (21:00)
[2018-11-17] MEDS: oxyCODONE/Acetaminophen 10/325 Tablet PO PRN ×3 (01:22→14:25)
[2018-11-17 01:24] VITALS: RESP 18
[2018-11-17] MEDS ORDERED: Rivaroxaban 10 MG Tablet PO SCH (04:00)
[2018-11-17] MEDS ORDERED: Levothyroxine 112 MCG Tablet PO SCH (06:00)
[2018-11-17 06:03] LABS: Hematocrit 33.8 % (39.0-51.0); Hemoglobin 11.4 gm/dL (13.0-17.0)
--- NOTE | 2018-11-17 07:17 | P.PNOP ---
Subjective Interval history: pt has post operative right knee pain denies any SOB, denies chest pain ready to be discharged home today Physical Exam Vital signs: Vital Signs 11/16/18 10:30 11/16/18 15:36 11/16/18 15:45 Temperature 97.9 F 97.5 F L Pulse Rate 78 72 69 Respiratory Rate 20 22 22 Blood Pressure 159/89 H 130/74 121/63 Pulse Oximetry 100 100 100 11/16/18 15:50 11/16/18 16:00 11/16/18 16:10 Temperature Pulse Rate 68 Respiratory Rate 13 Blood Pressure 134/75 Pulse Oximetry 100 99 99 11/16/18 16:15 11/16/18 16:30 11/16/18 16:45 Temperature Pulse Rate 64 70 76 Respiratory Rate 14 18 19 Blood Pressure 142/74 H 135/79 151/82 H Pulse Oximetry 100 97 99 11/16/18 17:00 11/16/18 17:15 11/16/18 17:30 Temperature 98 F Pulse Rate 69 73 77 Respiratory Rate 13 17 17 Blood Pressure 143/83 H 153/87 H 151/100 H Pulse Oximetry 100 100 99 11/16/18 17:45 11/16/18 19:30 11/16/18 19:46 Temperature 98.5 F Pulse Rate 81 90 Respiratory Rate 17 20 20 Blood Pressure 155/79 H 159/81 H Pulse Oximetry 99 96 11/16/18 23:11 11/17/18 03:55 Temperature 98.4 F 97.6 F Pulse Rate 114 H 85 Respiratory Rate 18 18 Blood Pressure 140/75 120/77 Pulse Oximetry 94 L 95 Intake & Output 11/16/18 11/17/18 11/17/18 18:59 06:59 18:59 Intake Total 1540 / 1540 1440 / 1440 Output Total 80 / 80 490 / 490 Balance 1460 / 1460 950 / 950 Weight 97 kg 97 kg Intake: IV 100 / 100 Cubicin Inj 600 MG In NS Inj 100 / 100 100 ML @ 200 mls/hr IV.SIG JUDICIAL ADMINISTRATIVE ASSISTANT [facility] Rx#:[id number] Oral 240 / 240 240 / 240 Anesthesia Amount 1200 / 1200 1200 / 1200 Output: Estimated Blood Loss 50 / 50 50 / 50 Wound Drainage 30 30 440 / 440 Right Knee 30 30 440 / 440 Other: Date of Last Bowel Movement 11/15/18 11/16/18 Weight On Admission 97 kg Narrative: seen and examined by Dr. tG Kearns right knee dressing dry and intact no calf tenderness +NVI Results - Labs CBC & Chem 7: 11/17/18 04:41 Laboratory Results - last 24 hr 11/16/18 11/16/18 11/17/18 10:28 16:40 04:41 Hgb 11.4 L Hct 33.8 L Albumin 3.1 L Blood Type A Positive Blood Type Recheck Required Antibody Screen Negative - Imaging Impressions Knee X-Ray 11/16/18 15:38 CONCLUSION: Postoperative changes status post arthroplasty. The lateral joint space appears mildly wider than the medial joint space this is of unclear significance.. Assessment and Plan - Assessment and Plan POD # 1 s/p R TKA PT-WBAT Xarelto 10 mg x 10 days and then may resume Xarelto 20 mg pre op dosage, hx of A. Fib and prior PE, as discussed with Dr. Arzate of cardiology Patient has pain medications at home, not requiring any rx on discharge discharge home today with [facility], orthopedically stable
[2018-11-17] MEDS: Senna/Docusate Sodium 8.6/50 MG Tablet PO SCH (08:47)
[2018-11-17] MEDS: buPROPion 150 MG 12 HR Tablet PO SCH (08:57)
[2018-11-17 08:58] VITALS: O2SAT 99
[2018-11-17] MEDS ORDERED: Levothyroxine 88 MCG Tablet PO SCH (09:00)
[2018-11-17] MEDS ORDERED: TRINTELLIX 10 MG PO SCH (09:00)
[2018-11-17] MEDS ORDERED: Acyclovir 800 MG Tablet PO SCH (09:00)
[2018-11-17] MEDS ORDERED: Carvedilol 12.5 MG Tablet PO SCH (09:00)
[2018-11-17 12:46] VITALS: BP 126/65; PULSE 79; TEMP 97.4
[2018-11-17] MEDS ORDERED: DAPTOmycin Inj 600 MG in Sodium Chlor 0.9% Inj 100 ML IV.SIG ONE (13:00)
== END 2018-11-17 14:51 | disposition home health service (06) ==
LOC: HSDC 09:18 → EDSTATUS 12:00 → HSDI 15:43 → N06 18:08
PROVIDERS: ADMIT Orthopaedic Surgery Orthopaedic Surgery of the Spine; ATTEND Orthopaedic Surgery Orthopaedic Surgery of the Spine